=== PATIENT | female | born 1940 | race Caucasian/White ===

== ENCOUNTER 2019-05-01 21:32 | Inpatient (IN) ==
[2019-05-01] MEDS ORDERED: methylPREDNISolone 125 MG/2 ML VIAL IVP ONE (21:47)
[2019-05-01] MEDS ORDERED: Ipratropium/Albuterol Neb 3 ML IH ONE (21:48)
[2019-05-01 21:51] LABS: ABG Base Excess -1 mEq/L (-2 to 3); ABG HCO3 28 mEq/L (21-27); ABG Oxygen Saturation 99 % (95-98); ABG PCO2 68 mmHg (35-45); ABG PH 7.23 pH Units (7.32-7.45); ABG PO2 172 mmHg (85-104); ABG TCO2 30 mEq/L (20-26)
[2019-05-01 21:59] LABS: Basophils # 0.1 K/mcL (0.0-0.2); Basophils % 0.6 %; Eosinophils % 0.2 %; Hematocrit 31.5 % (35.3-44.9); Hemoglobin 9.6 g/dL (11.5-15.4); Lymphocytes # 1.5 K/mcL (0.6-4.6); Lymphocytes % 7.5 %; Mean Corpuscular HGB Conc 30.5 g/dL (31.6-35.5); Mean Corpuscular Hemoglobin 29.4 pg (28.0-33.3); Mean Corpuscular Volume 96.3 fL (83.0-100.0); Mean Platelet Volume 10.6 fL (9.4-12.4); Monocytes # 2.5 K/mcL (0.0-1.3); Monocytes % 12.4 %; Neutrophils # 14.9 K/mcL (1.6-8.9); Platelet Count 241 K/mcL (140-400); Red Blood Count 3.27 M/mcL (3.82-4.97); Red Cell Distribution Width 13.3 % (11.5-14.5); Segmented Neutrophils % 75.3 %; White Blood Count 19.8 K/mcL (4.3-11.1)
[2019-05-01] MEDS ORDERED: Levofloxacin 750 MG/150 ML 750 MG/150 ML BAG IVPB ONE (22:06)
--- NOTE | 2019-05-01 22:14 | Emergency Department Note ---
Disposition Clinical Impression: Acute exacerbation of chronic obstructive airways disease, Acute respiratory failure with hypoxia and hypercapnia, Pneumonia Disposition: Admitted As Inpatient Condition: Serious Referrals: Cirilo Dacosta MD [Primary Care Provider] - Forms: ED Satisfaction Letter Time of Disposition: 00:43 General Adult HPI - General Chief complaint: ED Shortness of Breath/Dyspnea Stated complaint: JE Time Seen by Provider: 05/01/19 21:46 Source: patient, EMS Limitations: no limitations Nursing Notes Reviewed: Yes Vital Signs Reviewed: Yes - History of Present Illness HPI Narrative: Patient presents via EMS for hypoxia and respiratory distress and altered mental status, patient was unable to write significant history upon arrival in relation to recent episodes and what has been going on she does endorse currently feeling short of breath, she does not know exactly how she got here, she thought she was at [facility], she is able to tell me her name and that she does feel short of breath she is denying any current pain she denies headache neck pain chest pain she states that she feels cold but has not had any fever she denies abdominal pain she denies leg pain or leg swelling. Family arrives and states that the patient intermittently for the last few days has seemed more confused and out of it sometimes this happens when she has respiratory problems they have been monitoring her oxygen which he stated that it seems to have been okay she does have an appointment see her doctor on Thursday and the patient was trying to wait they report that today she had increased respiratory difficulty, she was coughing and coughed up some blood-streaked sputum she had a temperature of 95, and she then became more confused and more out of it so they called the paramedics. They report that this seems mostly like when she has had problems with her breathing in the past and that the patient over the last couple days just told them that it was her lungs she has not complained of chest pain apart from sometimes with cough, she has never coughed up blood in the past according to the family. She does have a history of congestive heart failure and heart problems as well as COPD, but the patient had told them that she thought this felt like her COPD she has had no recent travels or immobilization leg pain or leg swelling, she has felt cold but has not had a fever but again have a low temperature documented yesterday of 95. She has had no acute trauma. She has had no changes in appetite, no vomiting or diarrhea no complaints of any neck pain or headache no unilateral symptoms that they have noticed. She with her altered mental status today did seem to be leaning towards the right but there report that she just seemed very weak and that was the direction she was falling they did notthat she was not using one side of her body. The patient is denying any unilateral numbness or weakness. Paramedics report that patient's oxygenation saturation was 64% on oxygen upon arrival, improved en route nonrebreather, blood sugar was 137 Pain Scale: 0 - Related Data Home Medications Medication Instructions Recorded Confirmed ALPRAZolam [Xanax 1 MG Tablet] 1 mg PO BID 05/01/19 05/01/19 Albuterol Sulfate [Ventolin Hfa] 2 puff IH Q4H PRN 05/01/19 05/01/19 Atorvastatin Calcium 80 mg PO DAILY 05/01/19 05/01/19 Cholecalciferol (D-3) [Vitamin D] 2,000 unit PO DAILY 05/01/19 05/01/19 Duloxetine HCl [Cymbalta] 60 mg PO BID 05/01/19 05/01/19 Fluticasone Furoate [Arnuity 1 puff IH DAILY 05/01/19 05/01/19 Ellipta] Ibuprofen [Ibu] 800 mg PO TID PRN 05/01/19 05/01/19 Lactulose 30 ml PO BID PRN 05/01/19 05/01/19 Metoprolol [Lopressor] 25 mg PO BID 05/01/19 05/01/19 Montelukast [Singulair] 10 mg PO DAILY 05/01/19 05/01/19 Multivitamin [Daily Multiple 1 each PO DAILY 05/01/19 05/01/19 Vitamin] Nitroglycerin [Nitrostat] 0.4 mg SL Q5MIN PRN 05/01/19 05/01/19 Omeprazole [PriLOSEC] 20 mg PO DAILY 05/01/19 05/01/19 Spironolactone [Aldactone] 25 mg PO DAILY 05/01/19 05/01/19 Tiotropium Br/Olodaterol HCl 2 puff IH DAILY 05/01/19 05/01/19 [Stiolto Respimat Inhal [place]] Allergies Allergy/AdvReac Type Severity Reaction Status Date / Time acetaminophen [From Vicodin] AdvReac Vomiting Verified 05/01/19 22:21 Amoxicillin [From Augmentin] AdvReac Abdominal Verified 05/01/19 22:21 Pain ciprofloxacin AdvReac Vomiting Verified 05/01/19 22:21 clavulanic acid AdvReac Abdominal Verified 05/01/19 22:21 [From Augmentin] Pain hydrocodone [From Vicodin] AdvReac Vomiting Verified 05/01/19 22:21 All systems ED: reviewed and negative except as stated. Review of Systems: As Per HPI Past Medical History - Past Medical History Medical history: Reports: CHF, COPD Psychiatric history: Reports: anxiety - Social History Smoking Status: Former smoker Smokeless Tobacco Status: No Alcohol use: Reports: none Drug use: Reports: none Physical Exam - General Limitations: no limitations General appearance: alert, anxious, lethargic, in distress, other (Noted tachypnea, patient does appear to be leaning to the right but she can move all 4 extremities, she states that she just feels weak and tired which is why she is falling to the side. She is in mild to moderate respiratory distress, with noted tachypnea, some accessory muscle use without retraction) - Head Head exam: atraumatic, normocephalic - Eye Eye exam: Present: normal appearance, PERRL - ENT ENT exam: normal exam, normal oropharynx - Neck Neck exam: Present: normal inspection. Absent: meningismus, lymphadenopathy - Chest Chest inspection: Present: normal inspection, symmetric chest wall rise - Respiratory Respiratory exam: Present: respiratory distress, wheezes, accessory muscle use, prolonged expiratory phase, other (No focal rales rhonchi or crackles, diminished breath sounds bilaterally). Absent: normal lung sounds bilaterally - Cardiovascular Cardiovascular exam: Present: normal rhythm, tachycardia. Absent: systolic murmur, diastolic murmur, rubs, gallop, JVD - Abdominal Exam Abdominal exam: Present: soft, Non-Tender - Rectal Exam Rectal exam: Present: deferred - Extremities Exam Extremities exam: Present: normal inspection, full ROM, normal capillary refill. Absent: tenderness - Expanded Lower Extremity Exam Neurovascular/Tendon exam: Present: normal capillary refill. Absent: pulse deficit - Back Exam Back exam: Present: normal inspection. Absent: tenderness, CVA tenderness (R), CVA tenderness (L) - Neurological Exam Neurological exam: Present: alert, CN II-XII intact, other (Oriented 1). Absent: motor sensory deficit - Psychiatric Psychiatric exam: Present: normal affect, normal mood - Skin Skin exam: Present: warm (However cool distally), dry, intact. Absent: mottled Course Vital Signs Temperature 99.9 F H 05/01/19 21:35 Pulse Rate 120 05/01/19 21:35 Respiratory Rate 35 05/01/19 21:35 Blood Pressure 126/64 05/01/19 21:35 O2 Sat by Pulse Oximetry 98 05/01/19 21:35 Temperature 99.9 F H 05/01/19 21:35 Pulse Rate 84 05/02/19 00:18 Respiratory Rate 16 05/02/19 00:18 Blood Pressure 91/61 05/02/19 00:18 O2 Sat by Pulse Oximetry 100 05/02/19 00:18 Oxygen Delivery Oxygen Delivery Bipap Medical Decision Making - MDM Narrative Medical decision making narrative: Patient had IVs established, she was given IV Solu-Medrol she was given breathing treatment she was initially started on BiPAP for evidence for acute COPD exacerbation. She was given IV fluids, she was started on IV antibiotics. She did have a low-grade fever as well. Patient chest x-ray showed no acute findings. CBC demonstrated leukocytosis of 19,800 no other acute abnormality. Cardiac enzymes are negative. BNP was 201. Renal panel was unremarkable. ABG was obtained as the patient was being initiated on BiPAP, chemistry pH of 7.23 PCO2 of 68 option saturation of 170 she had come in on nonrebreather, we decreased oxygen on the BiPAP based upon this. On multiple subsequent examinations of the patient, she continues to significantly improve with the above management, she is way more alert awake talking able to answer all my questions states she is feeling much improved from a respiratory standpoint she had improved aeration, and is much more alert, stating that she is doing better. Secondary to her reported hemoptysis, with a chest x-ray that showed no obvious abnormality, a CT PE protocol was ordered which demonstrated multiple tree and blood opacities, no other evidence of acute process, no pulmonary embolism. Secondary to altered mental status and her presenting with leaning to the right, head CT was ordered which showed no acute findings. She now that she is breathing better and is mentating better is now sitting upright, with no evidence of any focal neurologic findings, she will be admitted to the hospital for further evaluation and management. Total critical care time as provided by myself excluding any procedures performed was 45 minutes. - Medical Records Medical records reviewed: Yes I reviewed the patient's medical records. - Lab Data Lab results reviewed: Yes I reviewed the patient's lab results. Result diagrams: 05/01/19 21:41 05/01/19 21:41 Lab Results 05/01/19 05/01/19 05/01/19 Range/Units 21:41 21:41 21:41 WBC 19.8 H (4.3-11.1) K/mcL RBC 3.27 L (3.82-4.97) M/mcL Hgb 9.6 L (11.5-15.4) g/dL Hct 31.5 L (35.3-44.9) % MCV 96.3 (83.0-100.0) fL MCH 29.4 (28.0-33.3) pg MCHC 30.5 L (31.6-35.5) g/dL RDW 13.3 (11.5-14.5) % Plt Count 241 (140-400) K/mcL MPV 10.6 (9.4-12.4) fL Immature Gran % 4.0 (0-4) % Seg Neutrophils % 75.3 % Lymphocytes % 7.5 % Monocytes % 12.4 % Eosinophils % 0.2 % Basophils % 0.6 % Neutrophils # 14.9 H (1.6-8.9) K/mcL Lymphocytes # 1.5 (0.6-4.6) K/mcL Monocytes # 2.5 H (0.0-1.3) K/mcL Eosinophils # 0.0 (0.0-0.6) K/mcL Basophils # 0.1 (0.0-0.2) K/mcL APTT 33.5 (26.0-36.0) Seconds Sample Site ABG pH (7.32-7.45) pH Units ABG pCO2 (35-45) mmHg ABG pO2 (85-104) mmHg ABG HCO3 (21-27) mEq/L ABG Total CO2 (20-26) mEq/L ABG O2 Saturation (95-98) % ABG Base Excess (-2 to 3) mEq/L Oleg Test O2 Delivery Device Inspired O2 (1-15=lpm [id number]=%) Sodium 142 (136-145) mEq/L Potassium 4.2 (3.5-5.1) mEq/L Chloride 104 (98-107) mEq/L Carbon Dioxide 26 (23-29) mEq/L BUN 19 (8-23) mg/dL Creatinine 1.22 H (0.60-1.20) mg/dL Est GFR ( Amer) 51 L (> 60) Est GFR (Non-Af Amer) 42 L (> 60) BUN/Creatinine Ratio 16 (6-26) Glucose 167 H (70-105) mg/dL Calculated Osmolality 300 (280-300) Lactic Acid (0.5-2.2) mmol/L Calcium 10.2 (8.6-10.3) mg/dL Magnesium 2.0 (1.6-2.6) mg/dL Troponin I < 0.03 (< 0.04) ng/mL B-Natriuretic Peptide (Less than 100) pg/mL Urine Color (Yellow) Urine Clarity (Clear) Urine pH (5.0-8.0) pH Units Ur Specific [place] (1.010-1.025) Urine Protein (Neg-Trace) mg/dL Urine Glucose (UA) (Normal) mg/dL Urine Ketones (Negative) mg/dL Urine Blood (Negative) Urine Nitrite (Negative) Urine Bilirubin (Negative) Urine Urobilinogen (Normal) mg/dL Ur Leukocyte Esterase (Negative) Urine Microscopic RBC (0-3) per hpf Urine Microscopic WBC (0-3) per hpf Ur Squamous Epith Cells (None-Few) per lpf Urine Bacteria (None-Few) per hpf Hyaline Casts (None-Few) per lpf Ur Culture Indicated? (NO) 05/01/19 05/01/19 05/01/19 Range/Units 21:41 21:47 22:14 WBC (4.3-11.1) K/mcL RBC (3.82-4.97) M/mcL Hgb (11.5-15.4) g/dL Hct (35.3-44.9) % MCV (83.0-100.0) fL MCH (28.0-33.3) pg MCHC (31.6-35.5) g/dL RDW (11.5-14.5) % Plt Count (140-400) K/mcL MPV (9.4-12.4) fL Immature Gran % (0-4) % Seg Neutrophils % % Lymphocytes % % Monocytes % % Eosinophils % % Basophils % % Neutrophils # (1.6-8.9) K/mcL Lymphocytes # (0.6-4.6) K/mcL Monocytes # (0.0-1.3) K/mcL Eosinophils # (0.0-0.6) K/mcL Basophils # (0.0-0.2) K/mcL APTT (26.0-36.0) Seconds Sample Site R Radial ABG pH 7.23 L (7.32-7.45) pH Units ABG pCO2 68 H (35-45) mmHg ABG pO2 172 H (85-104) mmHg ABG HCO3 28 H (21-27) mEq/L ABG Total CO2 30 H (20-26) mEq/L ABG O2 Saturation 99 H (95-98) % ABG Base Excess -1 (-2 to 3) mEq/L Oleg Test Negative O2 Delivery Device NRB Inspired O2 100.0 (1-15=lpm [id number]=%) Sodium (136-145) mEq/L Potassium (3.5-5.1) mEq/L Chloride (98-107) mEq/L Carbon Dioxide (23-29) mEq/L BUN (8-23) mg/dL Creatinine (0.60-1.20) mg/dL Est GFR ( Amer) (> 60) Est GFR (Non-Af Amer) (> 60) BUN/Creatinine Ratio (6-26) Glucose (70-105) mg/dL Calculated Osmolality (280-300) Lactic Acid 1.4 (0.5-2.2) mmol/L Calcium (8.6-10.3) mg/dL Magnesium (1.6-2.6) mg/dL Troponin I (< 0.04) ng/mL B-Natriuretic Peptide 201 H (Less than 100) pg/mL Urine Color (Yellow) Urine Clarity (Clear) Urine pH (5.0-8.0) pH Units Ur Specific [place] (1.010-1.025) Urine Protein (Neg-Trace) mg/dL Urine Glucose (UA) (Normal) mg/dL Urine Ketones (Negative) mg/dL Urine Blood (Negative) Urine Nitrite (Negative) Urine Bilirubin (Negative) Urine Urobilinogen (Normal) mg/dL Ur Leukocyte Esterase (Negative) Urine Microscopic RBC (0-3) per hpf Urine Microscopic WBC (0-3) per hpf Ur Squamous Epith Cells (None-Few) per lpf Urine Bacteria (None-Few) per hpf Hyaline Casts (None-Few) per lpf Ur Culture Indicated? (NO) 05/01/19 Range/Units 22:30 WBC (4.3-11.1) K/mcL RBC (3.82-4.97) M/mcL Hgb (11.5-15.4) g/dL Hct (35.3-44.9) % MCV (83.0-100.0) fL MCH (28.0-33.3) pg MCHC (31.6-35.5) g/dL RDW (11.5-14.5) % Plt Count (140-400) K/mcL MPV (9.4-12.4) fL Immature Gran % (0-4) % Seg Neutrophils % % Lymphocytes % % Monocytes % % Eosinophils % % Basophils % % Neutrophils # (1.6-8.9) K/mcL Lymphocytes # (0.6-4.6) K/mcL Monocytes # (0.0-1.3) K/mcL Eosinophils # (0.0-0.6) K/mcL Basophils # (0.0-0.2) K/mcL APTT (26.0-36.0) Seconds Sample Site ABG pH (7.32-7.45) pH Units ABG pCO2 (35-45) mmHg ABG pO2 (85-104) mmHg ABG HCO3 (21-27) mEq/L ABG Total CO2 (20-26) mEq/L ABG O2 Saturation (95-98) % ABG Base Excess (-2 to 3) mEq/L Oleg Test O2 Delivery Device Inspired O2 (1-15=lpm [id number]=%) Sodium (136-145) mEq/L Potassium (3.5-5.1) mEq/L Chloride (98-107) mEq/L Carbon Dioxide (23-29) mEq/L BUN (8-23) mg/dL Creatinine (0.60-1.20) mg/dL Est GFR ( Amer) (> 60) Est GFR (Non-Af Amer) (> 60) BUN/Creatinine Ratio (6-26) Glucose (70-105) mg/dL Calculated Osmolality (280-300) Lactic Acid (0.5-2.2) mmol/L Calcium (8.6-10.3) mg/dL Magnesium (1.6-2.6) mg/dL Troponin I (< 0.04) ng/mL B-Natriuretic Peptide (Less than 100) pg/mL Urine Color Dark Yellow (Yellow) Urine Clarity Cloudy A (Clear) Urine pH 5.0 (5.0-8.0) pH Units Ur Specific [place] 1.024 (1.010-1.025) Urine Protein 100 H (Neg-Trace) mg/dL Urine Glucose (UA) Normal (Normal) mg/dL Urine Ketones Negative (Negative) mg/dL Urine Blood Negative (Negative) Urine Nitrite Negative (Negative) Urine Bilirubin Small H (Negative) Urine Urobilinogen Normal (Normal) mg/dL Ur Leukocyte Esterase Negative (Negative) Urine Microscopic RBC 3-5 H (0-3) per hpf Urine Microscopic WBC 0-3 (0-3) per hpf Ur Squamous Epith Cells Many H (None-Few) per lpf Urine Bacteria None Seen (None-Few) per hpf Hyaline Casts Many H (None-Few) per lpf Ur Culture Indicated? NO (NO) - Radiology Data Radiology results reviewed: Yes I reviewed the patient's radiology results.
[2019-05-01] MEDS ORDERED: 0.9 % Sodium Chloride 1,000 ML IVC ONE (22:15)
[2019-05-01] MEDS ORDERED: cefTRIAXone 1,000 MG in Water for inj. (sterile) 20 ML 10 ML IVP ONE (22:19)
[2019-05-01] MEDS ORDERED: Azithromycin 500 MG in D5% in Water 250 ML IVPB ONE (22:19)
[2019-05-01 22:24] LABS: BUN/Creatinine Ratio 16 (6-26); Blood Urea Nitrogen 19 mg/dL (8-23); Calcium 10.2 mg/dL (8.6-10.3); Carbon Dioxide 26 mEq/L (23-29); Chloride 104 mEq/L (98-107); Glucose 167 mg/dL (70-105); Osmolality,Calculated 300 (280-300); Potassium 4.2 mEq/L (3.5-5.1); Sodium 142 mEq/L (136-145); Troponin I < 0.03 ng/mL (< 0.04); eGFR For African Americans 51 (> 60); eGFR For Non-African Americans 42 (> 60)
[2019-05-01] MEDS ORDERED: Isovue-370 500 ML BOTTLE IVP ONE (22:33)
[2019-05-01 22:55] LABS: Bilirubin,Urine Small (Negative); Blood,Urine Negative (Negative); Clarity,Urine Cloudy (Clear); Color,Urine Dark Yellow (Yellow); Glucose,Urine (UA) Normal (Normal); Ketones,Urine Negative (Negative); Leukocyte Esterase,Urine Negative (Negative); Nitrite,Urine Negative (Negative); Protein,Urine 100 mg/dL (Neg-Trace); Specific Gravity,Urine 1.024 (1.010-1.025); Urobilinogen,Urine Normal (Normal)
[2019-05-01 22:57] LABS: Bacteria,Urine None Seen per hpf (None-Few); Squamous Epithelial Cell,Urine Many per lpf (None-Few); WBC,Urine 0-3 per hpf (0-3)
[2019-05-01 23:03] LABS: Hyaline Casts,Urine Many per lpf (None-Few)
[2019-05-02] MEDS ORDERED: 0.9 % Sodium Chloride 1,000 ML IVC ONE ×2 (00:16→05:07)
[2019-05-02] MEDS ORDERED: Aminoglycoside Consult 1 EACH MC ONE (00:55)
--- NOTE | 2019-05-02 02:53 | Internal Med History&Physical ---
<Sesar Murphy - Last Filed: 05/02/19 05:15> Date of Encounter: 05/02/19 Time of Encounter: 03:14 Internal Medicine - H&P: HPI Chief complaint: Shortness of breath History of present illness: Ms. Ponce is an 79-year-old female with a PMH of CHF and COPD who presented to [facility] ED on 05/02/19 for respiratory distress and altered mental status. She was noted to be somewhat altered when she arrived. Per history obtained from family, patient reportedly was more confused and short of breath over the last few days. They report that today, she was coughing up blood-streaked sputum and developed increased confusion. Paramedics reported that patients O2 saturation was 64% on arrival, which subsequently improved with application of nonrebreather. Upon arrival, vital signs were significant for elevated temperature at 99.9, heart rate 120, respiratory rate 35, blood pressure 126/64, and O2 saturation 98% on 15 L via nonrebreather. Labs demonstrated elevated white count at 19.8, low hemoglobin at 9.6, elevated creatinine at 1.22, and elevated BNP at 201. CXR demonstrated no acute process. CT of the head demonstrated no acute intracranial abnormality. CTA of the chest showed no evidence of pulmonary embolism, mild mediastinal and hilar adenopathy, calcified mediastinal lymph nodes, scattered tree-in-bud infiltrates throughout the lungs with bronchial wall thickening suggestive of UIP. She was given a one-time dose of azithromycin, ceftriaxone, Levaquin, and Solu-Medrol. She was also given 2 L of normal saline. She was placed on BiPAP for respiratory support. Blood cultures were obtained 2. After these treatments, patient became more alert and awake, and was able to answer questions. During interview, patient states that she is feeling better. She is currently on BiPAP, and is able to answer questions. She is alert and oriented. Denies having chest pain, chest tightness, cough, or sputum production since she has been in the hospital. On physical exam, patient has diminished breath sounds bilaterally, but has no wheezes, rales, or rhonchi. No focal deficits or lower extremity edema is present. Past Med Surg Social Fam HX - Past Medical History Medical history: CHF, COPD Psychiatric history: anxiety - Past Surgical History Additional surgical history: tubal - Social History Smoking Status: Former smoker Smokeless Tobacco Status: No Alcohol use: none Drug use: none Internal Medicine - H&P: Meds ALPRAZolam [Xanax 1 MG Tablet] 1 mg PO BID 05/01/19 [History] Albuterol Sulfate [Ventolin Hfa] 2 puff IH Q4H PRN 05/01/19 [History] Atorvastatin Calcium 80 mg PO DAILY 05/01/19 [History] Cholecalciferol (D-3) [Vitamin D] 2,000 unit PO DAILY 05/01/19 [History] Duloxetine HCl [Cymbalta] 60 mg PO BID 05/01/19 [History] Fluticasone Furoate [Arnuity Ellipta] 1 puff IH DAILY 05/01/19 [History] Ibuprofen [Ibu] 800 mg PO TID PRN 05/01/19 [History] Lactulose 30 ml PO BID PRN 05/01/19 [History] Metoprolol [Lopressor] 25 mg PO BID 05/01/19 [History] Montelukast [Singulair] 10 mg PO DAILY 05/01/19 [History] Multivitamin [Daily Multiple Vitamin] 1 each PO DAILY 05/01/19 [History] Nitroglycerin [Nitrostat] 0.4 mg SL Q5MIN PRN 05/01/19 [History] Omeprazole [PriLOSEC] 20 mg PO DAILY 05/01/19 [History] Spironolactone [Aldactone] 25 mg PO DAILY 05/01/19 [History] Tiotropium Br/Olodaterol HCl [Stiolto Respimat Inhal [place]] 2 puff IH DAILY 05/01/19 [History] Allergy/AdvReac Type Severity Reaction Status Date / Time acetaminophen [From Vicodin] AdvReac Vomiting Verified 05/01/19 22:21 Amoxicillin [From Augmentin] AdvReac Abdominal Verified 05/01/19 22:21 Pain ciprofloxacin AdvReac Vomiting Verified 05/01/19 22:21 clavulanic acid AdvReac Abdominal Verified 05/01/19 22:21 [From Augmentin] Pain hydrocodone [From Vicodin] AdvReac Vomiting Verified 05/01/19 22:21 All Systems PM: A 10-system review of systems was performed and is negative for pertinent findings except as documented above in the HPI. - Constitutional Vitals: Temp Pulse Resp BP Pulse Ox 99.9 F H 84 16 91/61 100 05/01/19 21:35 05/02/19 00:18 05/02/19 00:18 05/02/19 00:18 05/02/19 00:18 Exam: General: A&O X3, conversant, on BiPAP, pale-appearing Head: atraumatic, normocephalic Eye: PERRL, EOMI, conjuntiva pink, sclera anicteric Neck: Supple, trachea midline; No lymphadenopathy Respiratory: Diminished breath sounds bilaterally. No accessory muscle use, wheezes, rales, or rhonchi Cardiovascular: RRR, +S1, +S2; no murmurs, rubs, gallops Abdomen: Soft, nontender Extremities: warm, radial pulses palpable and symmetrical; no clubbing, edema, or cyanosis Psychiatric: Normal affect, normal mood Skin: Dry, intact Internal Med - H&P Results - Labs CBC & Chem 7: 05/02/19 04:15 05/02/19 04:15 Labs: Short CBC 05/01/19 Range/Units 21:41 WBC 19.8 H (4.3-11.1) K/mcL Hgb 9.6 L (11.5-15.4) g/dL Hct 31.5 L (35.3-44.9) % Plt Count 241 (140-400) K/mcL Neutrophils # 14.9 H (1.6-8.9) K/mcL BMP 05/01/19 21:41 Sodium 142 Potassium 4.2 Chloride 104 Carbon Dioxide 26 BUN 19 Creatinine 1.22 H Glucose 167 H Calcium 10.2 Cardiac Enzymes 05/01/19 Range/Units 21:41 Troponin I < 0.03 (< 0.04) ng/mL Urine 05/01/19 Range/Units 22:30 Urine Color Dark Yellow (Yellow) Urine Clarity Cloudy A (Clear) Urine pH 5.0 (5.0-8.0) pH Units Ur Specific Fidelity 1.024 (1.010-1.025) Urine Protein 100 H (Neg-Trace) mg/dL Urine Glucose (UA) Normal (Normal) mg/dL - ABG Interpretation ABG results: 05/01/19 21:47 ABG pH 7.23 L ABG pCO2 68 H ABG pO2 172 H ABG HCO3 28 H ABG Total CO2 30 H ABG O2 Saturation 99 H ABG Base Excess -1 - Impressions ITS Impressions Chest X-Ray 05/01/19 21:47 IMPRESSION: No evidence of acute cardiopulmonary disease. D/ / Mohit West MD / Mohit West MD Interpreting Provider: Mohit West MD Head CT 05/01/19 21:47 IMPRESSION: No acute intracranial abnormality. D/ / Prosper Squires MD / Prosper Squires MD Interpreting Provider: Prosper Squires MD Chest CTA 05/01/19 22:33 IMPRESSION: 1. No evidence of pulmonary embolus. 2. Mild mediastinal and hilar adenopathy. Calcified mediastinal lymph nodes. 3. Scattered tree in bud infiltrates throughout the lungs. This may be on an inflammatory, infectious less likely autoimmune basis. There is also bronchial wall thickening. Findings suggest UIP. D/ / Renee Vale MD / Renee Vale MD Interpreting Provider: Renee Vale MD - Assessment and Plan (1) Sepsis Current Visit: Yes Status: Acute Assessment and plan: - Met 3 out of 4 SIRS criteria with heart rate 120, RR 35, WBC 19.8 with left shift - Elevated temperature on arrival at 99.9; lactic acid was within normal limits - Causative organism unknown at this time - CTA of chest showed scattered tree-in-bud infiltrates throughout lungs with b ronchial wall thickening - Was given a one-time dose of azithromycin, ceftriaxone, Levaquin, and Solu- Medrol in the emergency department - Was also given 2 L of normal saline - Blood cultures 2 were ordered and are currently pending Plan: - Continue IV Rocephin and Zithromax; tailor antibiotic therapy according to culture results - We will obtain sputum culture and Strep/Legionella urine antigen - Will order pro-calcitonin - Repeat a.m. labs Qualifiers: Qualified Code(s): A41.9 - Sepsis, unspecified organism (2) Acute respiratory failure with hypoxia and hypercapnia Current Visit: Yes Status: Acute Assessment and plan: - Presented with acute hypoxic respiratory failure - Likely secondary to COPD exacerbation - Per EMS, patient was satting at 64% on arrival, which improved with application of nonrebreather - Patient received Rocephin, Zithromax, Levaquin in the ED, as well as a one- time dose of Solu-Medrol - Patient was subsequently given BiPAP, which improved her oxygenation and mental status - AB.23/68/172//30/99 Plan: - Solu-Medrol 40 mg IV every 12 hours - Continue IV Zithromax and Rocephin - Continue supplemental O2 and BiPAP as needed - PRN Duonebs, Resume home symbicort and fluticasone - Repeat ABG tomorrow (3) Acute kidney failure Current Visit: Yes Status: Acute Assessment and plan: - Presented with elevated creatinine at 1.22 - Etiology is unknown at this time - Received 2 L of normal saline in the emergency department - If repeat creatinine does not improve, initiate full SANDHYA workup with urine studies Qualifiers: Qualified Code(s): N17.9 - Acute kidney failure, unspecified (4) CHF (congestive heart failure) Current Visit: Yes Status: Acute Assessment and plan: - Elevated BNP on arrival at 201 - No prior echocardiogram is on file Plan: - Obtain echocardiogram Qualifiers: Qualified Code(s): I50.9 - Heart failure, unspecified (5) Altered mental state Current Visit: Yes Status: Acute Assessment and plan: - Initially presented with altered mental status; was only oriented to person - Likely secondary to acute respiratory failure with hypercapnia - Mental status subsequently improved with the use of BiPAP; patient is now alert and oriented 3 Qualifiers: Qualified Code(s): R41.82 - Altered mental status, unspecified (6) DVT (deep venous thrombosis) Current Visit: Yes Status: Acute Assessment and plan: - Heparin 5000 SQ Qualifiers: Qualified Code(s): I82.409 - Acute embolism and thrombosis of unspecified deep veins of unspecified lower extremity - Time Spent With Patient Total time spent is greater than 50% in coordination of care (as documented) at patient's floor/unit and/or counseling patient: <Prosper Galo - Last Filed: 05/02/19 07:33> Date of Encounter: 05/02/19 Internal Medicine - H&P: HPI History of present illness: Ms. Ponce is a 79 year old female All Systems PM: A 10-system review of systems was performed and is negative for pertinent findings except as documented above in the HPI. - Constitutional Vitals: Temp Pulse Resp BP Pulse Ox 97.6 F 74 13 80/70 99 05/02/19 07:21 05/02/19 07:21 05/02/19 07:21 05/02/19 07:21 05/02/19 07:21 Internal Med - H&P Results - Labs CBC & Chem 7: 05/02/19 04:15 05/02/19 04:15 Labs: Short CBC 05/01/19 05/02/19 Range/Units 21:41 04:15 WBC 19.8 H 13.1 H (4.3-11.1) K/mcL Hgb 9.6 L 10.3 L (11.5-15.4) g/dL Hct 31.5 L 33.4 L (35.3-44.9) % Plt Count 241 212 (140-400) K/mcL Neutrophils # 14.9 H 11.1 H (1.6-8.9) K/mcL BMP 05/01/19 05/02/19 21:41 04:15 Sodium 142 143 Potassium 4.2 4.3 Chloride 104 108 H Carbon Dioxide 26 27 BUN 19 17 Creatinine 1.22 H 1.00 Glucose 167 H 184 H Calcium 10.2 8.5 L Cardiac Enzymes 05/01/19 Range/Units 21:41 Troponin I < 0.03 (< 0.04) ng/mL Urine 05/01/19 Range/Units 22:30 Urine Color Dark Yellow (Yellow) Urine Clarity Cloudy A (Clear) Urine pH 5.0 (5.0-8.0) pH Units Ur Specific [place] 1.024 (1.010-1.025) Urine Protein 100 H (Neg-Trace) mg/dL Urine Glucose (UA) Normal (Normal) mg/dL - ABG Interpretation ABG results: 05/01/19 21:47 ABG pH 7.23 L ABG pCO2 68 H ABG pO2 172 H ABG HCO3 28 H ABG Total CO2 30 H ABG O2 Saturation 99 H ABG Base Excess -1 - Impressions ITS Impressions Chest X-Ray 05/01/19 21:47 IMPRESSION: No evidence of acute cardiopulmonary disease. D/ / Mohit West MD / Mohit West MD Interpreting Provider: Mohit West MD Head CT 05/01/19 21:47 IMPRESSION: No acute intracranial abnormality. D/ / Prosper Squires MD / Prosper Squires MD Interpreting Provider: Prosper Squires MD Chest CTA 05/01/19 22:33 IMPRESSION: 1. No evidence of pulmonary embolus. 2. Mild mediastinal and hilar adenopathy. Calcified mediastinal lymph nodes. 3. Scattered tree in bud infiltrates throughout the lungs. This may be on an inflammatory, infectious less likely autoimmune basis. There is also bronchial wall thickening. Findings suggest UIP. D/ / Renee Vale MD / Renee Vale MD Interpreting Provider: Renee Vale MD Chest X-Ray 05/02/19 06:38 IMPRESSION: 1. Interval placement of right CVC with tip in the distal superior vena cava. No acute complication. 2. No acute pulmonary abnormality. D/ / Heron Chacon MD / Heron Chacon MD Interpreting Provider: Heron Chacon MD - Time Spent With Patient Total time spent is greater than 50% in coordination of care (as documented) at patient's floor/unit and/or counseling patient: - Attending Attestation I saw and evaluated the patient. I reviewed the residents note, performed my own physical examination and agree with findings and plan as documented in the residents note. Patient seen and examined on 05/02/19. Patient more awake now, answers questions. I assessed the patient in the ER initially, vital signs were stable. Upon arrival to the floor however, patient's blood pressures remained low despite fluid resuscitation. Decision was made to place a central line in the patient, and transfer her to the ICU. Please see separate procedure note for more details. Continue to treat pneumonia, and continue BiPAP. Daughter at bedside and helps to answer questions. She agrees patient is DNR/DNI. Consented to the central line prior to placement. Will continue close monitoring in the ICU.
[2019-05-02] MEDS ORDERED: Naloxone 0.4 MG/ML INJ IVP PRN ×2 (03:08→17:32)
[2019-05-02] MEDS ORDERED: 0.9 % Sodium Chloride 1,000 ML ONE ×2 (03:36→05:08)
[2019-05-02] MEDS ORDERED: Ipratropium/Albuterol Neb 3 ML IH PRN (04:32)
[2019-05-02 04:37] LABS: Basophils # 0.1 K/mcL (0.0-0.2); Basophils % 0.5 %; Hematocrit 33.4 % (35.3-44.9); Hemoglobin 10.3 g/dL (11.5-15.4); Immature Granulocytes % 2.5 % (0-4); Lymphocytes # 0.9 K/mcL (0.6-4.6); Mean Corpuscular HGB Conc 30.8 g/dL (31.6-35.5); Mean Corpuscular Volume 94.1 fL (83.0-100.0); Mean Platelet Volume 10.5 fL (9.4-12.4); Monocytes # 0.7 K/mcL (0.0-1.3); Monocytes % 5.5 %; Neutrophils # 11.1 K/mcL (1.6-8.9); Platelet Count 212 K/mcL (140-400); Red Blood Count 3.55 M/mcL (3.82-4.97); Red Cell Distribution Width 13.3 % (11.5-14.5); Segmented Neutrophils % 84.5 %; White Blood Count 13.1 K/mcL (4.3-11.1)
[2019-05-02 04:55] LABS: BUN/Creatinine Ratio 17 (6-26); Blood Urea Nitrogen 17 mg/dL (8-23); Calcium 8.5 mg/dL (8.6-10.3); Carbon Dioxide 27 mEq/L (23-29); Chloride 108 mEq/L (98-107); Glucose 184 mg/dL (70-105); Osmolality,Calculated 302 (280-300); Potassium 4.3 mEq/L (3.5-5.1); Sodium 143 mEq/L (136-145); eGFR For African Americans > 60 (> 60); eGFR For Non-African Americans 53 (> 60)
[2019-05-02 05:01] LABS: Platelet Estimate Normal (Normal)
[2019-05-02] MEDS ORDERED: Nitroglycerin 0.4 MG TAB.SUBL SL PRN ×2 (05:08→17:32)
[2019-05-02] MEDS ORDERED: Norepinephrine 4 MG in D5% in Water 250 ML IVC SCH ×2 (06:45→17:32)
--- NOTE | 2019-05-02 07:27 | Procedure Note ---
Date of procedure: 05/02/19 Pre-op diagnosis: hypotension Post-op diagnosis: same Procedure: Central Venous Catheter (CVC, Central Line) Placement Date: 05/02/19 Time: 06:30 Indication: Hemodynamic monitoring/Intravenous access Resident: Sesar Murphy Attending: Lakshmi Arnold The patient was placed in a dependent position appropriate for central line placement based on the vein to be cannulated. The patients right neck was prepped and draped in sterile fashion. 1% Lidocaine was used to anesthetize the surrounding skin area. A triple lumen catheter was introduced into the the internal jugular using the Seldinger technique and under ultrasound guidance. The catheter was threaded smoothly over the guide wire and appropriate blood return was obtained. Each lumen of the catheter was evacuated of air and flushed with sterile saline. The catheter was then sutured in place to the skin and a sterile dressing applied. Perfusion to the extremity distal to the point of catheter insertion was checked and found to be adequate. Attending was present for the entire procedure. Estimated Blood Loss: 5 The patient tolerated the procedure well and there were no complications. Was there an assistant clinical nurse manager present: Yes Sewing Department Supervisor: Lakshmi Arnold Estimated blood loss (cc): 5 Specimen: none Pathology: none sent Condition: stable Disposition: floor
[2019-05-02] MEDS ORDERED: (Tiotropium Br/Olodaterol Hcl [Stiolto Respimat Inhaler]) IH SCH (09:00)
[2019-05-02] MEDS ORDERED: (Fluticasone Furoate [Arnuity Ellipta] 1 PUFF) IH SCH (09:00)
[2019-05-02] MEDS ORDERED: Multivit/Ca/Min/Fe/FA 1 TAB TABLET PO SCH (09:00)
[2019-05-02] MEDS ORDERED: Cholecalciferol (D-3) 1,000 UNIT TABLET PO SCH (09:00)
[2019-05-02] MEDS ORDERED: Spironolactone 25 MG TABLET PO SCH (09:00)
--- NOTE | 2019-05-02 09:33 | Pulmonology Consult Note ---
<McgovernGerry S - Last Filed: 05/02/19 10:51> Date of Encounter: 05/02/19 Time of Encounter: 10:51 Assessment and Plan (1) Sepsis Current Visit: Yes Status: Acute Sepsis likely secondary to PNA, likely CAP - pt does have underlying structural lung disease and is high risk for complications XR from admission negative for acute cardiopulmonary disease CT scan from admission 1. No evidence of pulmonary embolus. 2. Mild media stinal and hilar adenopathy. Calcified mediastinal lymph nodes. - Scattered tree in bud infiltrates throughout the lungs. This may be on an inflammatory, infectious less likely autoimmune basis. - There is also bronchial wall thickening. Findings suggest UIP Repeat XR after CVC placement showed no acute abnormality Pt moved to ICU for vasopressor support, MAP was <65 Meets SIRS criteria for body temperature <96.8, WBC 13.1 Lactic acid 1.4 Procalcitonin 0.36 Plan: - d/c rocephin; continue azithromycin, zosyn and vancomycin day 1 - sputum cx pending - blood cx pending - legionella/strep pneumo antigens pending - respiratory infxn panel pending - continue methylprednisolone 40mg IVP q8hr, plan to de-escalate to q12 hr tomorrow if clinically improving - random cortisol pending, TSH pending - MRSA swab pending, plan to de-escalate abx depending on results - continue levophed, keep MAP>65 Qualifiers: Qualified Code(s): A41.9 - Sepsis, unspecified organism (2) Acute metabolic encephalopathy Current Visit: Yes Status: Acute Likely secondary to acute respiratory failure with hypercapnia. (3) Acute exacerbation of chronic obstructive airways disease Current Visit: Yes Status: Acute See plan as above for sepsis. (4) Acute respiratory failure with hypoxia and hypercapnia Current Visit: Yes Status: Acute Likely secondary to AECOPD. Wears 4L home oxygen at baseline - initial ABG pH 7.23, pCO2 68, pO2 172 - repeat ABG from this morning pH 7.28, pCO2 52, pO2 73 Plan: - continue IV steroids - continue supplemental O2, keep o2 sat >88% - BiPAP prn and hs - abx as above (5) Pneumonia Current Visit: Yes Status: Acute Likely causing AECOPD. See plan above for sepsis. Likely CAP, however, has underlying structural lung disease and is high risk pt. Will add broad spectrum abx for this reason. Qualifiers: Pneumonia type: due to unspecified organism Laterality: unspecified laterality Lung location: unspecified part of lung Qualified Code(s): J18.9 - Pneumonia, unspecified organism (6) CHF (congestive heart failure) Current Visit: Yes Status: Acute Chronic. BNP elevated at 284. Does not appear fluid overloaded on exam. No previous cardiac ECHO available. ECHO from 05/02/19: LVEF 60-65%, normal LV chamber size/wall thickness and fxn, mild LV diastolic dysfxn, normal RV structure and function, no pHTN/vavlular dysfxn. Qualifiers: Qualified Code(s): I50.9 - Heart failure, unspecified (7) DVT prophylaxis Current Visit: Yes Status: Acute sq heparin History of Present Illness Consult date: 05/02/19 Requesting physician: Millicent Gant Reason for consult: other (septic shock, vasopressor support) Chief complaint: JE, AMS History of present illness: Mrs. Ponce 79-year-old female with a PMH of CHF and COPD who presented to [facility] ED on 05/02/19 for respiratory distress and altered mental status. She is very difficult to obtain a history from, so most information taken from previous notes and chart review. Per history obtained from family, patient reportedly was more confused and short of breath over the last few days. They report that today, she was coughing up blood-streaked sputum and developed increased confusion. Paramedics reported that patients O2 saturation was 64% on arrival, which subsequently improved with application of nonrebreather. When the pt arrived to [facility] she was found to have vital signs were significant for elevated temperature at 99.9, heart rate 120, respiratory rate 35, blood pressure 126/64, and O2 saturation 98% on 15 L via nonrebreather. Labs demonstrated elevated white count at 19.8, low hemoglobin at 9.6, elevated creatinine at 1.22, and elevated BNP at 201. CXR demonstrated no acute process. CT of the head demonstrated no acute intracranial abnormality. CTA of the chest showed no evidence of pulmonary embolism, mild mediastinal and hilar adenopathy, calcified mediastinal lymph nodes, scattered tree-in-bud infiltrates throughout the lungs with bronchial wall thickening suggestive of UIP. The pt was subsequently transferred to ICU for further care after becoming h ypotensive and requiring pressor support. She had a CVC inserted and was started on levophed. Daughter was at bedside and confirms the history, states that the pt lives with her at home. Past Med Surg Social Fam HX - Past Medical History Medical history: CHF, COPD Psychiatric history: anxiety - Past Surgical History Additional surgical history: tubal - Social History Smoking Status: Former smoker Smokeless Tobacco Status: No Alcohol use: none Drug use: none Medications and Allergies ALPRAZolam [Xanax 1 MG Tablet] 1 mg PO BID 05/01/19 [History] Albuterol Sulfate [Ventolin Hfa] 2 puff IH Q4H PRN 05/01/19 [History] Atorvastatin Calcium 80 mg PO DAILY 05/01/19 [History] Cholecalciferol (D-3) [Vitamin D] 2,000 unit PO DAILY 05/01/19 [History] Duloxetine HCl [Cymbalta] 60 mg PO BID 05/01/19 [History] Fluticasone Furoate [Arnuity Ellipta] 1 puff IH DAILY 05/01/19 [History] Ibuprofen [Ibu] 800 mg PO TID PRN 05/01/19 [History] Lactulose 30 ml PO BID PRN 05/01/19 [History] Metoprolol [Lopressor] 25 mg PO BID 05/01/19 [History] Montelukast [Singulair] 10 mg PO DAILY 05/01/19 [History] Multivitamin [Daily Multiple Vitamin] 1 each PO DAILY 05/01/19 [History] Nitroglycerin [Nitrostat] 0.4 mg SL Q5MIN PRN 05/01/19 [History] Omeprazole [PriLOSEC] 20 mg PO DAILY 05/01/19 [History] Spironolactone [Aldactone] 25 mg PO DAILY 05/01/19 [History] Tiotropium Br/Olodaterol HCl [Stiolto Respimat Inhal [place]] 2 puff IH DAILY 05/01/19 [History] Allergy/AdvReac Type Severity Reaction Status Date / Time acetaminophen [From Vicodin] AdvReac Vomiting Verified 05/01/19 22:21 Amoxicillin [From Augmentin] AdvReac Abdominal Verified 05/01/19 22:21 Pain ciprofloxacin AdvReac Vomiting Verified 05/01/19 22:21 clavulanic acid AdvReac Abdominal Verified 05/01/19 22:21 [From Augmentin] Pain hydrocodone [From Vicodin] AdvReac Vomiting Verified 05/01/19 22:21 ROS unobtainable: due to mental status All Systems: The remainder of the systems were reviewed and are negative Physical Examination Vital Signs: Vital Signs, Last 4 Hours Temp Pulse Resp BP Pulse Ox 05/02/19 09:00 83 16 127/64 98 05/02/19 08:37 78 05/02/19 08:00 96.5 F L 73 16 124/65 98 05/02/19 07:21 97.6 F 74 13 80/70 99 05/02/19 07:15 75 18 80/70 99 05/02/19 06:30 72 18 72/40 98 05/02/19 05:45 71 16 81/39 100 General appearance: lethargic, appears uncomfortable Eyes: nonicteric ENT: oropharynx dry Effort: mildly labored Auscultation: right: wheezes, bilateral: diminished breath sounds Cardiovascular: regular rate and rhythm Gastrointestinal: soft, non-tender, non-distended Integumentary: normal Extremities: no cyanosis, no edema, no clubbing, pink and warm, pulses normal Musculoskeletal: no deformities non-focal exam anxious Results - Laboratory Findings CBC and BMP: 05/02/19 04:15 05/02/19 04:15 ABG ABG pH 7.23 pH Units (7.32-7.45) L 05/01/19 21:47 ABG pCO2 68 mmHg (35-45) H 05/01/19 21:47 ABG pO2 172 mmHg (85-104) H 05/01/19 21:47 ABG O2 Saturation 99 % (95-98) H 05/01/19 21:47 Abnormal lab findings: Abnormal lab results WBC 13.1 K/mcL (4.3-11.1) H 05/02/19 04:15 RBC 3.55 M/mcL (3.82-4.97) L 05/02/19 04:15 Hgb 10.3 g/dL (11.5-15.4) L 05/02/19 04:15 Hct 33.4 % (35.3-44.9) L 05/02/19 04:15 MCHC 30.8 g/dL (31.6-35.5) L 05/02/19 04:15 11.1 K/mcL (1.6-8.9) H 05/02/19 04:15 2.5 K/mcL (0.0-1.3) H 05/01/19 21:41 ABG pH 7.23 pH Units (7.32-7.45) L 05/01/19 21:47 ABG pCO2 68 mmHg (35-45) H 05/01/19 21:47 ABG pO2 172 mmHg (85-104) H 05/01/19 21:47 ABG HCO3 28 mEq/L (21-27) H 05/01/19 21:47 ABG Total CO2 30 mEq/L (20-26) H 05/01/19 21:47 ABG O2 Saturation 99 % (95-98) H 05/01/19 21:47 Chloride 108 mEq/L (98-107) H 05/02/19 04:15 1.22 mg/dL (0.60-1.20) H 05/01/19 21:41 Est GFR ( Amer) 51 (> 60) L 05/01/19 21:41 Est GFR (Non-Af Amer) 53 (> 60) L 05/02/19 04:15 Glucose 184 mg/dL (70-105) H 05/02/19 04:15 POC Glucose 176 mg/dL (70-99) H 05/02/19 04:17 302 (280-300) H 05/02/19 04:15 Calcium 8.5 mg/dL (8.6-10.3) L 05/02/19 04:15 B-Natriuretic Peptide 284 pg/mL (Less than 100) H 05/02/19 04:15 0.36 ng/mL (0.00-0.15) H 05/02/19 05:45 Cloudy (Clear) A 05/01/19 22:30 100 mg/dL (Neg-Trace) H 05/01/19 22:30 Small (Negative) H 05/01/19 22:30 3-5 per hpf (0-3) H 05/01/19 22:30 Ur Squamous Epith Cells Many per lpf (None-Few) H 05/01/19 22:30 Hyaline Casts Many per lpf (None-Few) H 05/01/19 22:30 - Microbiology Findings Microbiology Findings: Microbiology, Last 48 Hours 05/01/19 22:14 Blood Culture - Preliminary Peripheral Venipuncture Culture is incubating and being continuously monitored for growth. Final report to follow. 05/01/19 22:12 Blood Culture - Preliminary Peripheral Venipuncture Culture is incubating and being continuously monitored for growth. Final report to follow. - Clinical Findings Intake & Output: Intake & Output 05/01/19 05/02/19 05/02/19 23:59 07:59 15:59 Intake Total 4250 / 4250 Output Total 400 / 400 Balance 3850 / 3850 Weight 78.88 kg 79 kg Consult Discharge Plan - Plan Referrals: Cirilo Dacosta MD [Primary Care Provider] - <Christianne Salter - Last Filed: 05/02/19 19:30> Date of Encounter: 05/02/19 All Systems: The remainder of the systems were reviewed and are negative Physical Examination Vital Signs: Vital Signs, Last 4 Hours Temp Pulse Resp BP Pulse Ox 05/02/19 18:00 79 16 111/60 94 05/02/19 17:00 82 14 113/60 97 05/02/19 16:43 97.8 F 05/02/19 16:00 78 20 113/60 99 Results - Laboratory Findings CBC and BMP: 05/02/19 04:15 05/02/19 04:15 ABG ABG pH 7.28 pH Units (7.32-7.45) L 05/02/19 10:45 ABG pCO2 52 mmHg (35-45) H 05/02/19 10:45 ABG pO2 73 mmHg (85-104) L 05/02/19 10:45 ABG O2 Saturation 92 % (95-98) L 05/02/19 10:45 Abnormal lab findings: Abnormal lab results WBC 13.1 K/mcL (4.3-11.1) H 05/02/19 04:15 RBC 3.55 M/mcL (3.82-4.97) L 05/02/19 04:15 Hgb 10.3 g/dL (11.5-15.4) L 05/02/19 04:15 Hct 33.4 % (35.3-44.9) L 05/02/19 04:15 MCHC 30.8 g/dL (31.6-35.5) L 05/02/19 04:15 11.1 K/mcL (1.6-8.9) H 05/02/19 04:15 2.5 K/mcL (0.0-1.3) H 05/01/19 21:41 ABG pH 7.28 pH Units (7.32-7.45) L 05/02/19 10:45 ABG pCO2 52 mmHg (35-45) H 05/02/19 10:45 ABG pO2 73 mmHg (85-104) L 05/02/19 10:45 ABG HCO3 28 mEq/L (21-27) H 05/01/19 21:47 ABG Total CO2 30 mEq/L (20-26) H 05/01/19 21:47 ABG O2 Saturation 92 % (95-98) L 05/02/19 10:45 ABG Base Excess -3 mEq/L (-2 to 3) L 05/02/19 10:45 Chloride 108 mEq/L (98-107) H 05/02/19 04:15 1.22 mg/dL (0.60-1.20) H 05/01/19 21:41 Est GFR ( Amer) 51 (> 60) L 05/01/19 21:41 Est GFR (Non-Af Amer) 53 (> 60) L 05/02/19 04:15 Glucose 184 mg/dL (70-105) H 05/02/19 04:15 POC Glucose 169 mg/dL (70-99) H 05/02/19 07:22 302 (280-300) H 05/02/19 04:15 Calcium 8.5 mg/dL (8.6-10.3) L 05/02/19 04:15 B-Natriuretic Peptide 284 pg/mL (Less than 100) H 05/02/19 04:15 0.36 ng/mL (0.00-0.15) H 05/02/19 05:45 TSH 0.239 mcIU/mL (0.340-5.600) L 05/02/19 11:19 Cloudy (Clear) A 05/01/19 22:30 100 mg/dL (Neg-Trace) H 05/01/19 22:30 Small (Negative) H 05/01/19 22:30 3-5 per hpf (0-3) H 05/01/19 22:30 Ur Squamous Epith Cells Many per lpf (None-Few) H 05/01/19 22:30 Hyaline Casts Many per lpf (None-Few) H 05/01/19 22:30 Positive (Negative) A 05/02/19 11:22 - Microbiology Findings Microbiology Findings: Microbiology, Last 48 Hours 05/01/19 22:14 Blood Culture - Preliminary Peripheral Venipuncture Culture is incubating and being continuously monitored for growth. Final report to follow. 05/01/19 22:12 Blood Culture - Preliminary Peripheral Venipuncture Culture is incubating and being continuously monitored for growth. Final report to follow. - Clinical Findings Intake & Output: Intake & Output 05/02/19 05/02/19 05/02/19 07:59 15:59 23:59 Intake Total 4250 / 4628 278 / 4628 100 / 4628 Output Total 400 / 650 250 / 650 Balance 3850 / 3978 28 / 3978 100 / 3978 Weight 79 kg - Attending Attestation I saw and evaluated this patient and my medical decision-making was reviewed with the Resident Physician. I agree with the documented findings, disposition and treatment plan as described except to the extent set forth below. We independently had [id number] contact with the patient I spent 40 minutes of Critical Care time with this patient. It involved decision making of high complexity to assess, manipulate, and support vital organ system failure and/or to prevent further life threatening deterioration of the patient's condition. The time involved in the performance of separately reportable procedures was not counted toward critical care time. Patient seen and examined at bedside Labs, radiology, chart personally reviewed. Management was reviewed during multidisciplinary critical care rounds. FEATURES REPORTER: Patient is conscious more alert than before following commands no focal neurological deficit. Pulm: Patient has acceptable oxygenation and ventilation patient has acute hypoxic hypercarbic respiratory failure most likely secondary to pneumonia patient had a CTA which showed negative for pulmonary embolism patient is on BiPAP ventilation slowly improving. Patient daughter who is the POA expressed their wish that patient never wanted to be intubated in the case of worsening respiratory failure Cards: Patient is in shock most likely secondary to pneumonia to look for other sources especially intra-abdominal will get a repeat lactate to see any evidence of tissue hyperperfusion. Patient is on levophed to keep the map greater than 65. FEN-GI: Patient is on BiPAP will keep her nothing by mouth tonight to keep her on PPI. Renal: Labs and output are output were reviewed ID: Procalcitonin was elevated suggestive of bacterial infection most likely source is pneumonia we will keep looking for other sources. 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 Lines: All lines examined without evidence of infection : Dispo: patient is critically ill with septic shock CODE:[id number]
[2019-05-02] MEDS ORDERED: Piperacillin/Tazobactam 3.375 GM in 0.9 % Sodium Chloride Mini Bag 100 ML IVPB SCH (10:00)
[2019-05-02 10:48] LABS: ABG Base Excess -3 mEq/L (-2 to 3); ABG HCO3 24 mEq/L (21-27); ABG Oxygen Saturation 92 % (95-98); ABG PCO2 52 mmHg (35-45); ABG PH 7.28 pH Units (7.32-7.45); ABG PO2 73 mmHg (85-104); ABG TCO2 26 mEq/L (20-26)
[2019-05-02] MEDS: MethylPREDNISolone 40 MG/ML VIAL IVP SCH ×2 (12:01→16:19)
[2019-05-02 12:07] LABS: Thyroid Stimulating Hormone 0.239 mcIU/mL (0.340-5.600)
[2019-05-02 12:25] LABS: Adenovirus Not Detected (Not Detect); Bordetella Pertussis Not Detected (Not Detect); Chlamydophila pneumoniae Not Detected (Not Detect); Coronavirus 229E Not Detected (Not Detect); Coronavirus HKU1 Not Detected (Not Detect); Coronavirus NL63 Not Detected (Not Detect); Coronavirus OC43 Not Detected (Not Detect); Human Metapneumovirus Not Detected (Not Detect); Human Rhinovirus/Enterovirus Not Detected (Not Detect); Influenza A Subtype 2009 H1 Not Detected (Not Detect); Influenza A Untypeable Not Detected (Not Detect); Influenza B Not Detected (Not Detect); Mycoplasma pneumoniae Not Detected (Not Detect); Parainfluenza Virus 1 Not Detected (Not Detect); Parainfluenza Virus 2 Not Detected (Not Detect); Parainfluenza Virus 3 Not Detected (Not Detect); Parainfluenza Virus 4 Not Detected (Not Detect); Respiratory Syncytial Virus Not Detected (Not Detect)
[2019-05-02] MEDS ORDERED: *HR* Heparin 5,000 UNIT/ML VIAL SQ SCH (14:00)
[2019-05-02] MEDS ORDERED: Ipratropium/Albuterol Neb 3 ML IH SCH (16:00)
[2019-05-02] MEDS: Piperacillin/Tazobactam 3.375 GM in 0.9 % Sodium Chloride Mini Bag 100 ML IVPB SCH (19:40)
[2019-05-02] MEDS: *HR* Heparin 5,000 UNIT/ML VIAL SQ SCH (20:59)
[2019-05-02] MEDS ORDERED: cefTRIAXone 1,000 MG in Water for inj. (sterile) 20 ML 10 ML IVP SCH (21:00)
[2019-05-02] MEDS ORDERED: Azithromycin 500 MG in D5% in Water 250 ML IVPB SCH ×2 (21:00)
[2019-05-02] MEDS ORDERED: MOMETASONE FUROATE 100 mcg Inhaler IH SCH (22:00)
[2019-05-03] MEDS: Piperacillin/Tazobactam 3.375 GM in 0.9 % Sodium Chloride Mini Bag 100 ML IVPB SCH ×3 (03:12→20:50)
[2019-05-03 03:20] LABS: Hematocrit 31.5 % (35.3-44.9); Mean Corpuscular HGB Conc 31.7 g/dL (31.6-35.5); Mean Corpuscular Hemoglobin 29.5 pg (28.0-33.3); Mean Corpuscular Volume 92.9 fL (83.0-100.0); Mean Platelet Volume 10.3 fL (9.4-12.4); Platelet Count 207 K/mcL (140-400); Red Blood Count 3.39 M/mcL (3.82-4.97); Red Cell Distribution Width 13.4 % (11.5-14.5); White Blood Count 15.9 K/mcL (4.3-11.1)
[2019-05-03 03:42] LABS: BUN/Creatinine Ratio 23 (6-26); Blood Urea Nitrogen 19 mg/dL (8-23); Calcium 9.1 mg/dL (8.6-10.3); Carbon Dioxide 25 mEq/L (23-29); Chloride 112 mEq/L (98-107); Glucose 141 mg/dL (70-105); Osmolality,Calculated 301 (280-300); Potassium 3.8 mEq/L (3.5-5.1); Sodium 143 mEq/L (136-145); eGFR For African Americans > 60 (> 60); eGFR For Non-African Americans > 60 (> 60)
[2019-05-03] MEDS: *HR* Heparin 5,000 UNIT/ML VIAL SQ SCH ×3 (04:53→20:51)
--- NOTE | 2019-05-03 06:38 | Pulmonology Progress Note ---
<Gerry Mcgovern S - Last Filed: 05/03/19 10:46> Date of Encounter: 05/03/19 Time of Encounter: 07:18 Assessment and Plan (1) Sepsis Current Visit: Yes Status: Resolved Sepsis likely secondary to PNA, likely CAP - pt does have underlying structural lung disease and is high risk for complications - resolved XR from admission negative for acute cardiopulmonary disease CT scan from admission 1. No evidence of pulmonary embolus. 2. Mild mediastinal and hilar adenopathy. Calcified mediastinal lymph nodes. - Scattered tree in bud infiltrates throughout the lungs. This may be on an inflammatory, infectious less likely autoimmune basis. - There is also bronchial wall thickening. Findings suggest UIP Repeat XR after CVC placement showed no acute abnormality Pt moved to ICU for vasopressor support, MAP was <65; levophed has since been weaned off and the pt is maintaining BP Meets SIRS criteria for HR>90, WBC Lactic acid 1.4, repeat on 05/02 was 0.5 Procalcitonin 0.36 Plan: - d/c rocephin; continue azithromycin, zosyn and vancomycin day 2; vancomycin for a total of 3 doses - sputum cx pending - blood cx pending ngtd - legionella/strep pneumo antigens pending - respiratory infxn panel pending - de-escalated steroids to q12 from q8h - plan to transfer the pt out of the ICU today to the floor if she remains clinically stable keep CVC in place for another 24 hrs incase pt does become hypotensive again BiPAP prn and hs, using during naps Qualifiers: Sepsis type: sepsis due to unspecified organism Qualified Code(s): A41.9 - Sepsis, unspecified organism (2) Acute metabolic encephalopathy Current Visit: Yes Status: Resolved Likely secondary to acute respiratory failure with hypercapnia. Has resolved. Pt is mentating much better. (3) Acute exacerbation of chronic obstructive airways disease Current Visit: Yes Status: Acute See plan as above for sepsis. (4) Acute respiratory failure with hypoxia and hypercapnia Current Visit: Yes Status: Acute Likely secondary to AECOPD. Wears 4L home oxygen at baseline - initial ABG pH 7.23, pCO2 68, pO2 172 - repeat ABG from 05/02: pH 7.28, pCO2 52, pO2 73 Plan: - continue IV steroids - continue supplemental O2, keep o2 sat >88% - BiPAP prn and hs - abx as above - one time dose of lasix IVP once (5) Pneumonia Current Visit: Yes Status: Acute Likely causing AECOPD. See plan above for sepsis. Likely CAP, however, has underlying structural lung disease and is high risk pt. Will add broad spectrum abx for this reason. Qualifiers: Pneumonia type: due to unspecified organism Laterality: unspecified laterality Lung location: unspecified part of lung Qualified Code(s): J18.9 - Pneumonia, unspecified organism (6) CHF (congestive heart failure) Current Visit: Yes Status: Acute Chronic. BNP elevated at 284. Does not appear fluid overloaded on exam. No previous cardiac ECHO available. ECHO from 05/02/19: LVEF 60-65%, normal LV chamber size/wall thickness and fxn, mild LV diastolic dysfxn, normal RV structure and function, no pHTN/vavlular dysfxn. Resuming lopressor BID. Pt does take 25 mg PO BID at home, will start at 12.5mg PO BID and monitor pt during first dose. Qualifiers: Heart failure type: diastolic Heart failure chronicity: chronic Qualified Code(s): I50.32 - Chronic diastolic (congestive) heart failure (7) DVT prophylaxis Current Visit: Yes Status: Acute sq heparin Subjective Principal diagnosis: hypotension, sepsis Interval history: Pt seen at bedside. She is feeling much better today. She has no acute complaints or concerns. Plan to transfer out of ICU today. Objective PUL Vital signs: Last Vital Signs Temp 97.4 F L 05/03/19 03:39 Pulse 110 05/03/19 05:53 Resp 20 05/03/19 05:53 BP 117/59 05/03/19 05:53 Pulse Ox 98 05/03/19 05:53 General appearance: no acute distress, alert Eyes: nonicteric ENT: oropharynx dry Effort: mildly labored Auscultation: bilateral: diminished breath sounds, other (some mild coarse breath sounds) Cardiovascular: other (tacycardic, regular rhythm) Gastrointestinal: soft, non-tender, non-distended Integumentary: normal Extremities: pink and warm, pulses normal, no ischemia or petechiae Musculoskeletal: no deformities normal mental status, non-focal exam mood appropriate, affect normal Results - Laboratory Findings CBC and BMP: 05/03/19 03:14 05/03/19 03:14 ABG ABG pH 7.28 pH Units (7.32-7.45) L 05/02/19 10:45 ABG pCO2 52 mmHg (35-45) H 05/02/19 10:45 ABG pO2 73 mmHg (85-104) L 05/02/19 10:45 ABG O2 Saturation 92 % (95-98) L 05/02/19 10:45 Abnormal lab findings: Abnormal lab results WBC 15.9 K/mcL (4.3-11.1) H 05/03/19 03:14 RBC 3.39 M/mcL (3.82-4.97) L 05/03/19 03:14 Hgb 10.0 g/dL (11.5-15.4) L 05/03/19 03:14 Hct 31.5 % (35.3-44.9) L 05/03/19 03:14 MCHC 30.8 g/dL (31.6-35.5) L 05/02/19 04:15 11.1 K/mcL (1.6-8.9) H 05/02/19 04:15 2.5 K/mcL (0.0-1.3) H 05/01/19 21:41 ABG pH 7.28 pH Units (7.32-7.45) L 05/02/19 10:45 ABG pCO2 52 mmHg (35-45) H 05/02/19 10:45 ABG pO2 73 mmHg (85-104) L 05/02/19 10:45 ABG HCO3 28 mEq/L (21-27) H 05/01/19 21:47 ABG Total CO2 30 mEq/L (20-26) H 05/01/19 21:47 ABG O2 Saturation 92 % (95-98) L 05/02/19 10:45 ABG Base Excess -3 mEq/L (-2 to 3) L 05/02/19 10:45 Chloride 112 mEq/L (98-107) H 05/03/19 03:14 1.22 mg/dL (0.60-1.20) H 05/01/19 21:41 Est GFR ( Amer) 51 (> 60) L 05/01/19 21:41 Est GFR (Non-Af Amer) 53 (> 60) L 05/02/19 04:15 Glucose 141 mg/dL (70-105) H 05/03/19 03:14 POC Glucose 151 mg/dL (70-99) H 05/02/19 07:52 301 (280-300) H 05/03/19 03:14 Calcium 8.5 mg/dL (8.6-10.3) L 05/02/19 04:15 B-Natriuretic Peptide 284 pg/mL (Less than 100) H 05/02/19 04:15 0.36 ng/mL (0.00-0.15) H 05/02/19 05:45 TSH 0.239 mcIU/mL (0.340-5.600) L 05/02/19 11:19 Cloudy (Clear) A 05/01/19 22:30 100 mg/dL (Neg-Trace) H 05/01/19 22:30 Small (Negative) H 05/01/19 22:30 3-5 per hpf (0-3) H 05/01/19 22:30 Ur Squamous Epith Cells Many per lpf (None-Few) H 05/01/19 22:30 Hyaline Casts Many per lpf (None-Few) H 05/01/19 22:30 Positive (Negative) A 05/02/19 11:22 - Microbiology Findings Microbiology Findings: Microbiology, Last 48 Hours 05/01/19 22:14 Blood Culture - Preliminary Peripheral Venipuncture Culture is incubating and being continuously monitored for growth. Final report to follow. 05/01/19 22:12 Blood Culture - Preliminary Peripheral Venipuncture Culture is incubating and being continuously monitored for growth. Final report to follow. - Clinical Findings Intake & Output: Intake & Output 05/02/19 05/02/19 05/03/19 15:59 23:59 07:59 Intake Total 278 / 4978 450 / 4978 Output Total 250 / 850 200 / 850 75 / 75 Balance 4127 250 / 4128 -75 / -75 Weight 78.5 kg Consult Discharge Plan - Plan Referrals: Cirilo Dacosta MD [Primary Care Provider] - <Christianne Salter - Last Filed: 05/03/19 22:28> Date of Encounter: 05/03/19 Objective PUL Vital signs: Last Vital Signs Temp 98.0 F 05/03/19 19:38 Pulse 82 05/03/19 22:00 Resp 18 05/03/19 22:00 BP 107/54 05/03/19 22:00 Pulse Ox 96 05/03/19 22:00 Results - Laboratory Findings CBC and BMP: 05/03/19 03:14 05/03/19 03:14 ABG ABG pH 7.28 pH Units (7.32-7.45) L 05/02/19 10:45 ABG pCO2 52 mmHg (35-45) H 05/02/19 10:45 ABG pO2 73 mmHg (85-104) L 05/02/19 10:45 ABG O2 Saturation 92 % (95-98) L 05/02/19 10:45 Abnormal lab findings: Abnormal lab results WBC 15.9 K/mcL (4.3-11.1) H 05/03/19 03:14 RBC 3.39 M/mcL (3.82-4.97) L 05/03/19 03:14 Hgb 10.0 g/dL (11.5-15.4) L 05/03/19 03:14 Hct 31.5 % (35.3-44.9) L 05/03/19 03:14 MCHC 30.8 g/dL (31.6-35.5) L 05/02/19 04:15 11.1 K/mcL (1.6-8.9) H 05/02/19 04:15 2.5 K/mcL (0.0-1.3) H 05/01/19 21:41 ABG pH 7.28 pH Units (7.32-7.45) L 05/02/19 10:45 ABG pCO2 52 mmHg (35-45) H 05/02/19 10:45 ABG pO2 73 mmHg (85-104) L 05/02/19 10:45 ABG HCO3 28 mEq/L (21-27) H 05/01/19 21:47 ABG Total CO2 30 mEq/L (20-26) H 05/01/19 21:47 ABG O2 Saturation 92 % (95-98) L 05/02/19 10:45 ABG Base Excess -3 mEq/L (-2 to 3) L 05/02/19 10:45 Chloride 112 mEq/L (98-107) H 05/03/19 03:14 1.22 mg/dL (0.60-1.20) H 05/01/19 21:41 Est GFR ( Amer) 51 (> 60) L 05/01/19 21:41 Est GFR (Non-Af Amer) 53 (> 60) L 05/02/19 04:15 Glucose 141 mg/dL (70-105) H 05/03/19 03:14 POC Glucose 151 mg/dL (70-99) H 05/02/19 07:52 301 (280-300) H 05/03/19 03:14 Calcium 8.5 mg/dL (8.6-10.3) L 05/02/19 04:15 B-Natriuretic Peptide 284 pg/mL (Less than 100) H 05/02/19 04:15 0.36 ng/mL (0.00-0.15) H 05/02/19 05:45 TSH 0.239 mcIU/mL (0.340-5.600) L 05/02/19 11:19 Cloudy (Clear) A 05/01/19 22:30 100 mg/dL (Neg-Trace) H 05/01/19 22:30 Small (Negative) H 05/01/19 22:30 3-5 per hpf (0-3) H 05/01/19 22:30 Ur Squamous Epith Cells Many per lpf (None-Few) H 05/01/19 22:30 Hyaline Casts Many per lpf (None-Few) H 05/01/19 22:30 Positive (Negative) A 05/02/19 11:22 - Microbiology Findings Microbiology Findings: Microbiology, Last 48 Hours 05/03/19 07:43 Sputum Culture - Preliminary Sputum 05/03/19 10:46 Legionella Antigen - Final Urine,Catheterized (Straight) Streptococcus pneumoniae Antigen (M - Final 05/01/19 22:14 Blood Culture - Preliminary Peripheral Venipuncture Culture is incubating and being continuously monitored for growth. Final report to follow. 05/01/19 22:12 Blood Culture - Preliminary Peripheral Venipuncture Culture is incubating and being continuously monitored for growth. Final report to follow. - Clinical Findings Intake & Output: Intake & Output 05/03/19 05/03/19 05/03/19 07:59 15:59 23:59 Intake Total 200 / 200 Output Total 75 / 1325 900 / 1325 350 / 1325 Balance 125 / -1125 -900 / -1125 -350 / -1125 Weight 78.5 kg - Attending Attestation - Attending Attestation I saw and evaluated this patient and my medical decision-making was reviewed with the Resident Physician. I agree with the documented findings, disposition and treatment plan as described except to the extent set forth below. We independently had [id number] contact with the patient Patient seen and examined at bedside Labs, radiology, chart personally reviewed. Management was reviewed during multidisciplinary critical care rounds. 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 Patient daughter who is the POA expressed their wish that patient never wanted to be intubated in the case of worsening respiratory failure 05/03 patient acceptable oxygenation and ventilation she is off BiPAP patient V/Q mismatch most likely due to underlying COPD exacerbation complicated by pneumonia to continue bronchodilators, steroids and antibiotics Cards: Patient is in shock most likely secondary to pneumonia to look for other sources especially intra-abdominal will get a repeat lactate to see any evidence of tissue hyperperfusion. Patient is on levophed to keep the map greater than 65. 05/03 patient septic shock is resolved she is off vasopressors. FEN-GI: Advance diet as tolerated. Renal: Labs and output are output were reviewed ID: Procalcitonin was elevated suggestive of bacterial infection most likely source is pneumonia we will keep looking for other sources. 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 Lines: All lines examined without evidence of infection : Dispo: patient can be transferred to medical telemetry CODE:[id number]
[2019-05-03] MEDS ORDERED: Multivit/Ca/Min/Fe/FA 1 TAB TABLET PO SCH (09:00)
[2019-05-03] MEDS ORDERED: Spironolactone 25 MG TABLET PO SCH (09:00)
[2019-05-03] MEDS ORDERED: Cholecalciferol (D-3) 1,000 UNIT TABLET PO SCH (09:00)
[2019-05-03] MEDS ORDERED: MOMETASONE FUROATE 100 mcg Inhaler IH SCH (10:00)
[2019-05-03] MEDS ORDERED: Ipratropium/Albuterol Neb 3 ML IH SCH (10:00)
[2019-05-03] MEDS ORDERED: Furosemide 20 MG/2 ML VIAL IVP ONE (10:45)
[2019-05-03] MEDS ORDERED: ALPRAZolam 1 MG TABLET PO SCH (11:30)
[2019-05-03] MEDS ORDERED: Nitroglycerin 0.4 MG TAB.SUBL SL PRN (14:28)
[2019-05-03] MEDS ORDERED: Norepinephrine 4 MG in D5% in Water 250 ML IVC SCH (14:28)
[2019-05-03] MEDS ORDERED: Naloxone 0.4 MG/ML INJ IVP PRN (14:28)
--- NOTE | 2019-05-03 14:46 | Electrocardiograph Report ---
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
[2019-05-03] MEDS: Ipratropium/Albuterol Neb 3 ML IH SCH (15:18)
[2019-05-03] MEDS ORDERED: MethylPREDNISolone 40 MG/ML VIAL IVP SCH ×2 (18:00)
[2019-05-03] MEDS: MethylPREDNISolone 40 MG/ML VIAL IVP SCH (18:22)
[2019-05-03] MEDS: ALPRAZolam 1 MG TABLET PO SCH (20:51)
[2019-05-03] MEDS ORDERED: Azithromycin 500 MG in D5% in Water 250 ML IVPB SCH (21:00)
[2019-05-04] MEDS: MOMETASONE FUROATE 100 mcg Inhaler IH SCH ×3 (03:11→22:47)
[2019-05-04] MEDS: Piperacillin/Tazobactam 3.375 GM in 0.9 % Sodium Chloride Mini Bag 100 ML IVPB SCH ×3 (03:45→20:41)
[2019-05-04 04:14] LABS: Hematocrit 31.3 % (35.3-44.9); Hemoglobin 10.1 g/dL (11.5-15.4); Mean Corpuscular HGB Conc 32.3 g/dL (31.6-35.5); Mean Corpuscular Hemoglobin 29.6 pg (28.0-33.3); Mean Corpuscular Volume 91.8 fL (83.0-100.0); Mean Platelet Volume 10.6 fL (9.4-12.4); Platelet Count 234 K/mcL (140-400); Red Blood Count 3.41 M/mcL (3.82-4.97); Red Cell Distribution Width 13.4 % (11.5-14.5)
[2019-05-04] MEDS: Ipratropium/Albuterol Neb 3 ML IH SCH ×5 (04:18→22:47)
[2019-05-04 04:20] LABS: BUN/Creatinine Ratio 20 (6-26); Blood Urea Nitrogen 18 mg/dL (8-23); Calcium 8.9 mg/dL (8.6-10.3); Carbon Dioxide 28 mEq/L (23-29); Chloride 106 mEq/L (98-107); Glucose 155 mg/dL (70-105); Osmolality,Calculated 293 (280-300); Potassium 3.5 mEq/L (3.5-5.1); Sodium 139 mEq/L (136-145); eGFR For African Americans > 60 (> 60); eGFR For Non-African Americans 59 (> 60)
[2019-05-04] MEDS: *HR* Heparin 5,000 UNIT/ML VIAL SQ SCH ×3 (05:36→20:42)
[2019-05-04] MEDS: MethylPREDNISolone 40 MG/ML VIAL IVP SCH ×2 (05:36→17:20)
--- NOTE | 2019-05-04 08:12 | Internal Med Progress Note ---
Hospitalist Progress Note - Encounter Date of Encounter: 05/04/19 Time of Encounter: 08:00 - Subjective Interval History: Transferred out of the ICU overnight - Exam Vitals: Temp Pulse Resp BP Pulse Ox 99.2 F 73 17 110/62 95 05/04/19 06:53 05/04/19 06:53 05/04/19 06:53 05/04/19 06:53 05/04/19 06:53 Exam: General: A&O X3, conversant, on BiPAP, pale-appearing Head: atraumatic, normocephalic Eye: PERRL, EOMI, conjuntiva pink, sclera anicteric Neck: Supple, trachea midline; No lymphadenopathy Respiratory: Diminished breath sounds bilaterally. No accessory muscle use, wheezes, rales, or rhonchi Cardiovascular: RRR, +S1, +S2; no murmurs, rubs, gallops Abdomen: Soft, nontender Extremities: warm, radial pulses palpable and symmetrical; no clubbing, edema, or cyanosis Psychiatric: Normal affect, normal mood Skin: Dry, intact - Assessment and Plan (1) Acute respiratory failure with hypoxia and hypercapnia Current Visit: Yes Status: Acute Assessment and Plan: Pt came in with acute on chronic hypoxic and hypercapnioc resp failure 2/2 to pneumonia and COPD exacerbation Imprved on nebs, steroids and antibiotics. Wean oxygen down to baseline and wean steroids to po Overnight BIPAP ordered (2) Sepsis Current Visit: Yes Status: Acute Assessment and Plan: Likley secondary to pneumonia Continue zosyn and azithromycin (3) Acute exacerbation of chronic obstructive airways disease Current Visit: Yes Status: Acute Assessment and Plan: Continue nebs, steroids and antibiotics (4) Pneumonia Current Visit: Yes Status: Acute Assessment and Plan: Continue antibiotics (5) DVT prophylaxis Current Visit: Yes Status: Acute Assessment and Plan: Continue heparin - Time Spent with Patient Total time spent is greater than 50% in coordination of care (as documented) at patient's floor/unit and/or counseling patient: Internal Medicine: Result - Labs CBC & Chem 7: 05/04/19 03:30 05/04/19 03:30 Labs: Short CBC 05/04/19 Range/Units 03:30 WBC 18.0 H (4.3-11.1) K/mcL Hgb 10.1 L (11.5-15.4) g/dL Hct 31.3 L (35.3-44.9) % Plt Count 234 (140-400) K/mcL BMP 05/04/19 03:30 Sodium 139 Potassium 3.5 Chloride 106 Carbon Dioxide 28 BUN 18 Creatinine 0.92 Glucose 155 H Calcium 8.9 - ABG Interpretation ABG results: ABG ABG pH 7.28 pH Units (7.32-7.45) L 05/02/19 10:45 ABG pCO2 52 mmHg (35-45) H 05/02/19 10:45 ABG pO2 73 mmHg (85-104) L 05/02/19 10:45 ABG O2 Saturation 92 % (95-98) L 05/02/19 10:45 Consult Discharge Plan - Plan Referrals: Cirilo Dacosta MD [Primary Care Provider] - (2) Sepsis Qualifiers: Sepsis type: sepsis due to unspecified organism Qualified Code(s): A41.9 - Sepsis, unspecified organism (4) Pneumonia Qualifiers: Pneumonia type: due to unspecified organism Laterality: unspecified laterality Lung location: unspecified part of lung Qualified Code(s): J18.9 - Pneumonia, unspecified organism
[2019-05-04] MEDS: Cholecalciferol (D-3) 1,000 UNIT TABLET PO SCH (10:05)
[2019-05-04] MEDS: Multivit/Ca/Min/Fe/FA 1 TAB TABLET PO SCH (10:06)
[2019-05-04] MEDS: Spironolactone 25 MG TABLET PO SCH (10:07)
[2019-05-04] MEDS: ALPRAZolam 1 MG TABLET PO SCH ×2 (10:07→20:43)
[2019-05-04] MEDS: Azithromycin 250 MG TABLET PO SCH (10:21)
[2019-05-05] MEDS: Ipratropium/Albuterol Neb 3 ML IH SCH ×2 (04:03→11:02)
[2019-05-05] MEDS: Piperacillin/Tazobactam 3.375 GM in 0.9 % Sodium Chloride Mini Bag 100 ML IVPB SCH ×3 (04:37→20:17)
[2019-05-05] MEDS: MethylPREDNISolone 40 MG/ML VIAL IVP SCH ×2 (05:16→18:08)
[2019-05-05] MEDS: *HR* Heparin 5,000 UNIT/ML VIAL SQ SCH ×3 (05:16→22:44)
[2019-05-05 09:13] LABS: Basophils # 0.1 K/mcL (0.0-0.2); Basophils % 0.5 %; Hematocrit 35.5 % (35.3-44.9); Hemoglobin 11.1 g/dL (11.5-15.4); Immature Granulocytes % 7.3 % (0-4); Lymphocytes # 1.1 K/mcL (0.6-4.6); Lymphocytes % 7.7 %; Mean Corpuscular HGB Conc 31.3 g/dL (31.6-35.5); Mean Corpuscular Hemoglobin 29.2 pg (28.0-33.3); Mean Corpuscular Volume 93.4 fL (83.0-100.0); Mean Platelet Volume 10.6 fL (9.4-12.4); Monocytes # 0.7 K/mcL (0.0-1.3); Monocytes % 4.5 %; Neutrophils # 11.7 K/mcL (1.6-8.9); Platelet Count 232 K/mcL (140-400); Red Cell Distribution Width 13.2 % (11.5-14.5); White Blood Count 14.6 K/mcL (4.3-11.1)
[2019-05-05] MEDS: Cholecalciferol (D-3) 1,000 UNIT TABLET PO SCH (09:22)
[2019-05-05] MEDS: Multivit/Ca/Min/Fe/FA 1 TAB TABLET PO SCH (09:23)
[2019-05-05] MEDS: Spironolactone 25 MG TABLET PO SCH (09:23)
[2019-05-05] MEDS: ALPRAZolam 1 MG TABLET PO SCH ×2 (09:23→20:16)
[2019-05-05] MEDS: Azithromycin 250 MG TABLET PO SCH (09:24)
[2019-05-05 09:26] LABS: BUN/Creatinine Ratio 19 (6-26); Blood Urea Nitrogen 18 mg/dL (8-23); Calcium 9.3 mg/dL (8.6-10.3); Carbon Dioxide 29 mEq/L (23-29); Chloride 106 mEq/L (98-107); Glucose 143 mg/dL (70-105); Magnesium 1.9 mg/dL (1.6-2.6); Osmolality,Calculated 294 (280-300); Phosphorous 2.8 mg/dL (2.7-4.5); Potassium 3.4 mEq/L (3.5-5.1); Sodium 140 mEq/L (136-145); eGFR For African Americans > 60 (> 60); eGFR For Non-African Americans 56 (> 60)
--- NOTE | 2019-05-05 10:20 | Internal Med Progress Note ---
Hospitalist Progress Note - Encounter Date of Encounter: 05/05/19 Time of Encounter: 09:00 - Subjective Interval History: No acute events overnight - Exam Vitals: Temp Pulse Resp BP Pulse Ox 98.1 F 78 16 122/83 96 05/05/19 07:42 05/05/19 07:42 05/05/19 07:42 05/05/19 07:42 05/05/19 07:42 Exam: General: A&O X3, conversant, on BiPAP, pale-appearing Head: atraumatic, normocephalic Eye: PERRL, EOMI, conjuntiva pink, sclera anicteric Neck: Supple, trachea midline; No lymphadenopathy Respiratory: Diminished breath sounds bilaterally. No accessory muscle use, whe ezes, rales, or rhonchi Cardiovascular: RRR, +S1, +S2; no murmurs, rubs, gallops Abdomen: Soft, nontender Extremities: warm, radial pulses palpable and symmetrical; no clubbing, edema, or cyanosis Psychiatric: Normal affect, normal mood Skin: Dry, intact - Assessment and Plan (1) Acute respiratory failure with hypoxia and hypercapnia Current Visit: Yes Status: Acute Assessment and Plan: Pt came in with acute on chronic hypoxic and hypercapnioc resp failure 2/2 to pneumonia and COPD exacerbation Imprved on nebs, steroids and antibiotics. Wean oxygen down to baseline and wean steroids to po Patient did not qualify for BIPAP on overnight study Plan to discharge to rehab (2) Sepsis Current Visit: Yes Status: Acute Assessment and Plan: Likely secondary to pneumonia Continue zosyn and azithromycin (3) Acute exacerbation of chronic obstructive airways disease Current Visit: Yes Status: Acute Assessment and Plan: Continue nebs, steroids and antibiotics (4) Pneumonia Current Visit: Yes Status: Acute Assessment and Plan: Continue antibiotics (5) DVT prophylaxis Current Visit: Yes Status: Acute Assessment and Plan: Continue heparin - Time Spent with Patient Total time spent is greater than 50% in coordination of care (as documented) at patient's floor/unit and/or counseling patient: Internal Medicine: Result - Labs CBC & Chem 7: 05/05/19 08:13 05/05/19 08:13 Labs: Short CBC 05/05/19 Range/Units 08:13 WBC 14.6 H (4.3-11.1) K/mcL Hgb 11.1 L (11.5-15.4) g/dL Hct 35.5 (35.3-44.9) % Plt Count 232 (140-400) K/mcL Neutrophils # 11.7 H (1.6-8.9) K/mcL BMP 05/05/19 08:13 Sodium 140 Potassium 3.4 L Chloride 106 Carbon Dioxide 29 BUN 18 Creatinine 0.95 Glucose 143 H Calcium 9.3 - ABG Interpretation ABG results: ABG ABG pH 7.28 pH Units (7.32-7.45) L 05/02/19 10:45 ABG pCO2 52 mmHg (35-45) H 05/02/19 10:45 ABG pO2 73 mmHg (85-104) L 05/02/19 10:45 ABG O2 Saturation 92 % (95-98) L 05/02/19 10:45 Consult Discharge Plan - Plan Referrals: Cirilo Dacosta MD [Primary Care Provider] - (2) Sepsis Qualifiers: Sepsis type: sepsis due to unspecified organism Qualified Code(s): A41.9 - Sepsis, unspecified organism (4) Pneumonia Qualifiers: Pneumonia type: due to unspecified organism Laterality: unspecified laterality Lung location: unspecified part of lung Qualified Code(s): J18.9 - Pneumonia, unspecified organism
[2019-05-05] MEDS: Potassium Chloride Elixir 20 MEQ/15 ML UDC PO SCH ×3 (10:32→17:48)
[2019-05-05] MEDS: MOMETASONE FUROATE 100 mcg Inhaler IH SCH ×2 (11:13→23:10)
[2019-05-05] MEDS: Albuterol 2.5 MG/3 ML NEBULIZER IH SCH ×3 (16:06→23:11)
[2019-05-05] MEDS: Acetylcysteine 10% 2 ML INHSOL IH SCH ×2 (16:07→23:11)
[2019-05-06] MEDS: Piperacillin/Tazobactam 3.375 GM in 0.9 % Sodium Chloride Mini Bag 100 ML IVPB SCH ×2 (03:13→11:20)
[2019-05-06 05:00] LABS: Hematocrit 33.7 % (35.3-44.9); Hemoglobin 10.6 g/dL (11.5-15.4); Mean Corpuscular HGB Conc 31.5 g/dL (31.6-35.5); Mean Corpuscular Hemoglobin 28.6 pg (28.0-33.3); Mean Corpuscular Volume 91.1 fL (83.0-100.0); Mean Platelet Volume 10.2 fL (9.4-12.4); Nucleated Red Blood Cells 0.1 /100 WBC (0); Platelet Count 201 K/mcL (140-400); Red Cell Distribution Width 13.3 % (11.5-14.5); White Blood Count 18.3 K/mcL (4.3-11.1)
[2019-05-06 05:16] LABS: BUN/Creatinine Ratio 22 (6-26); Blood Urea Nitrogen 19 mg/dL (8-23); Calcium 9.1 mg/dL (8.6-10.3); Carbon Dioxide 29 mEq/L (23-29); Chloride 104 mEq/L (98-107); Glucose 166 mg/dL (70-105); Magnesium 1.8 mg/dL (1.6-2.6); Osmolality,Calculated 300 (280-300); Phosphorous 3.3 mg/dL (2.7-4.5); Potassium 3.7 mEq/L (3.5-5.1); Sodium 142 mEq/L (136-145); eGFR For African Americans > 60 (> 60); eGFR For Non-African Americans > 60 (> 60)
[2019-05-06] MEDS: *HR* Heparin 5,000 UNIT/ML VIAL SQ SCH ×2 (05:45→13:02)
[2019-05-06] MEDS: MethylPREDNISolone 40 MG/ML VIAL IVP SCH (05:46)
[2019-05-06 05:47] LABS: Lymphocytes # 2.2 K/mcL (0.6-4.6); Monocytes # 0.7 K/mcL (0.0-1.3); Neutrophils # 14.6 K/mcL (1.6-8.9); Platelet Estimate Normal (Normal)
[2019-05-06 07:30] VITALS: BP 124/79
[2019-05-06] MEDS: Albuterol 2.5 MG/3 ML NEBULIZER IH SCH (07:30)
[2019-05-06] MEDS: Acetylcysteine 10% 2 ML INHSOL IH SCH (07:31)
--- NOTE | 2019-05-06 08:52 | Internal Med Progress Note ---
Hospitalist Progress Note - Encounter Date of Encounter: 05/06/19 Time of Encounter: 09:00 - Subjective Interval History: No acute events overnight - Exam Vitals: Temp Pulse Resp BP Pulse Ox 99.0 F 78 17 124/79 100 05/06/19 07:29 05/06/19 07:29 05/06/19 07:32 05/06/19 07:29 05/06/19 07:32 Exam: General: A&O X3, conversant, on BiPAP, pale-appearing Head: atraumatic, normocephalic Eye: PERRL, EOMI, conjuntiva pink, sclera anicteric Neck: Supple, trachea midline; No lymphadenopathy Respiratory: Diminished breath sounds bilaterally. No accessory muscle use, wh eezes, rales, or rhonchi Cardiovascular: RRR, +S1, +S2; no murmurs, rubs, gallops Abdomen: Soft, nontender Extremities: warm, radial pulses palpable and symmetrical; no clubbing, edema, or cyanosis Psychiatric: Normal affect, normal mood Skin: Dry, intact - Assessment and Plan (1) Acute respiratory failure with hypoxia and hypercapnia Current Visit: Yes Status: Acute Assessment and Plan: Pt came in with acute on chronic hypoxic and hypercapnioc resp failure 2/2 to pneumonia and COPD exacerbation Imprved on nebs, steroids and antibiotics. Wean oxygen down to baseline and wean steroids to po Patient did not qualify for BIPAP on overnight study Plan to discharge to rehab (2) Sepsis Current Visit: Yes Status: Acute Assessment and Plan: Likely secondary to pneumonia Continue zosyn and azithromycin (3) Acute exacerbation of chronic obstructive airways disease Current Visit: Yes Status: Acute Assessment and Plan: Continue nebs, steroids and antibiotics (4) Pneumonia Current Visit: Yes Status: Acute Assessment and Plan: Continue antibiotics (5) DVT prophylaxis Current Visit: Yes Status: Acute Assessment and Plan: Continue heparin - Time Spent with Patient Total time spent is greater than 50% in coordination of care (as documented) at patient's floor/unit and/or counseling patient: Internal Medicine: Result - Labs CBC & Chem 7: 05/06/19 04:23 05/06/19 04:23 Labs: Short CBC 05/05/19 05/06/19 Range/Units 08:13 04:23 WBC 14.6 H 18.3 H (4.3-11.1) K/mcL Hgb 11.1 L 10.6 L (11.5-15.4) g/dL Hct 35.5 33.7 L (35.3-44.9) % Plt Count 232 201 (140-400) K/mcL Neutrophils # 11.7 H 14.6 H (1.6-8.9) K/mcL BMP 05/05/19 05/06/19 08:13 04:23 Sodium 140 142 Potassium 3.4 L 3.7 Chloride 106 104 Carbon Dioxide 29 29 BUN 18 19 Creatinine 0.95 0.87 Glucose 143 H 166 H Calcium 9.3 9.1 - ABG Interpretation ABG results: ABG ABG pH 7.28 pH Units (7.32-7.45) L 05/02/19 10:45 ABG pCO2 52 mmHg (35-45) H 05/02/19 10:45 ABG pO2 73 mmHg (85-104) L 05/02/19 10:45 ABG O2 Saturation 92 % (95-98) L 05/02/19 10:45 Consult Discharge Plan - Plan Referrals: Cirilo Dacosta MD [Primary Care Provider] - (2) Sepsis Qualifiers: Sepsis type: sepsis due to unspecified organism Qualified Code(s): A41.9 - Sepsis, unspecified organism (4) Pneumonia Qualifiers: Pneumonia type: due to unspecified organism Laterality: unspecified laterality Lung location: unspecified part of lung Qualified Code(s): J18.9 - Pneumonia, unspecified organism
[2019-05-06] MEDS: Multivit/Ca/Min/Fe/FA 1 TAB TABLET PO SCH (09:47)
[2019-05-06] MEDS: Spironolactone 25 MG TABLET PO SCH (09:47)
[2019-05-06] MEDS: Azithromycin 250 MG TABLET PO SCH (09:47)
[2019-05-06] MEDS: ALPRAZolam 1 MG TABLET PO SCH (09:47)
[2019-05-06] MEDS: Cholecalciferol (D-3) 1,000 UNIT TABLET PO SCH (09:47)
[2019-05-06] MEDS: MOMETASONE FUROATE 100 mcg Inhaler IH SCH (11:38)
--- NOTE | 2019-05-06 14:22 | Discharge Summary ---
Date of Encounter: 05/06/19 Time of Encounter: 14:30 - Discharge Diagnosis (1) Acute respiratory failure with hypoxia and hypercapnia Priority: Primary Status: Acute Assessment and Plan: 79-year-old female with a PMH of CHF and COPD who presented to [facility] ED on 05/02/19 for respiratory distress and altered mental status. She was noted to be somewhat altered when she arrived. Per history obtained from family, patient reportedly was more confused and short of breath over the last few days. They report that today, she was coughing up blood-streaked sputum and developed increased confusion. Paramedics reported that patients O2 saturation was 64% on arrival, which subsequently improved with application of nonrebreather. Upon arrival, vital signs were significant for elevated temperature at 99.9, heart rate 120, respiratory rate 35, blood pressure 126/64, and O2 saturation 98% on 15 L via nonrebreather. Labs demonstrated elevated white count at 19.8, low hemoglobin at 9.6, elevated creatinine at 1.22, and elevated BNP at 201. CXR demonstrated no acute process. She was given a one-time dose of azithromycin, ceftriaxone, Levaquin, and Solu-Medrol. She was also given 2 L of normal saline. She was placed on BiPAP for respiratory support. She was assessed with acute on chronic hypoxic and hypercapnic resp failure 2/2 to pneumonia and COPD exacerbation and sepsis secondary to bacterial pneumonia. She imbrued on nebs, steroids and antibiotics. She is back at her baseline of 2L of oxygen and alert and oriented x 3. She will be discharged to rehab on a prednisone taper. 35 minutes was spent discharging this patient (2) Sepsis Priority: Primary Status: Acute Assessment and Plan: Likely secondary to pneumonia Continue zosyn and azithromycin Qualifiers: Sepsis type: sepsis due to unspecified organism Qualified Code(s): A41.9 - Sepsis, unspecified organism (3) Acute exacerbation of chronic obstructive airways disease Priority: Primary Status: Acute (4) Pneumonia Priority: Primary Status: Acute Qualifiers: Pneumonia type: due to unspecified organism Laterality: unspecified laterality Lung location: unspecified part of lung Qualified Code(s): J18.9 - Pneumonia, unspecified organism (5) DVT prophylaxis Priority: Primary Status: Acute Hospital course: Ms. Ponce is a 79 year old female - Time Spent with Patient Total time spent providing and/or coordinating discharge services: - Discharge Medications Prescriptions: New predniSONE [PredniSONE] 40 mg PO DAILY 7 Days #14 tablet Continued Metoprolol [Lopressor] 25 mg PO BID Duloxetine HCl [Cymbalta] 60 mg PO BID Spironolactone [Aldactone] 25 mg PO DAILY ALPRAZolam [Xanax 1 MG Tablet] 1 mg PO BID Nitroglycerin [Nitrostat] 0.4 mg SL Q5MIN PRN PRN Reason: Chest Pain Omeprazole [PriLOSEC] 20 mg PO DAILY Ibuprofen [Ibu] 800 mg PO TID PRN PRN Reason: Pain Atorvastatin Calcium 80 mg PO DAILY Albuterol Sulfate [Ventolin Hfa] 2 puff IH Q4H PRN PRN Reason: Shortness Of Breath Montelukast [Singulair] 10 mg PO DAILY Cholecalciferol (D-3) [Vitamin D] 2,000 unit PO DAILY Multivitamin [Daily Multiple Vitamin] 1 each PO DAILY Fluticasone Furoate [Arnuity Ellipta] 1 puff IH DAILY Tiotropium Br/Olodaterol HCl [Stiolto Respimat Inhal [place]] 2 puff IH DAILY Lactulose 30 ml PO BID PRN PRN Reason: Constipation Home Medications: ALPRAZolam [Xanax 1 MG Tablet] 1 mg PO BID 05/01/19 [History] Albuterol Sulfate [Ventolin Hfa] 2 puff IH Q4H PRN 05/01/19 [History] Atorvastatin Calcium 80 mg PO DAILY 05/01/19 [History] Cholecalciferol (D-3) [Vitamin D] 2,000 unit PO DAILY 05/01/19 [History] Duloxetine HCl [Cymbalta] 60 mg PO BID 05/01/19 [History] Fluticasone Furoate [Arnuity Ellipta] 1 puff IH DAILY 05/01/19 [History] Ibuprofen [Ibu] 800 mg PO TID PRN 05/01/19 [History] Lactulose 30 ml PO BID PRN 05/01/19 [History] Metoprolol [Lopressor] 25 mg PO BID 05/01/19 [History] Montelukast [Singulair] 10 mg PO DAILY 05/01/19 [History] Multivitamin [Daily Multiple Vitamin] 1 each PO DAILY 05/01/19 [History] Nitroglycerin [Nitrostat] 0.4 mg SL Q5MIN PRN 05/01/19 [History] Omeprazole [PriLOSEC] 20 mg PO DAILY 05/01/19 [History] Spironolactone [Aldactone] 25 mg PO DAILY 05/01/19 [History] Tiotropium Br/Olodaterol HCl [Stiolto Respimat Inhal [place]] 2 puff IH DAILY 05/01/19 [History] predniSONE [PredniSONE] 40 mg PO DAILY 7 Days #14 tablet 05/06/19 [Rx] Allergies/Adverse Reactions: Allergy/AdvReac Type Severity Reaction Status Date / Time acetaminophen [From Vicodin] AdvReac Vomiting Verified 05/01/19 22:21 Amoxicillin [From Augmentin] AdvReac Abdominal Verified 05/01/19 22:21 Pain ciprofloxacin AdvReac Vomiting Verified 05/01/19 22:21 clavulanic acid AdvReac Abdominal Verified 05/01/19 22:21 [From Augmentin] Pain hydrocodone [From Vicodin] AdvReac Vomiting Verified 05/01/19 22:21 Date of admission: 05/02/19 00:54 Primary care physician: Cirilo Dacosta MD Consults: 05/02/19 07:40 Consult to Critical Care [CONS] Routine Consulting Provider: [facility] Reason for Consult: septic shock secondary to PNA, on vaspressor support Call Completed: Yes 05/02/19 08:36 Consult to Nurse Navigator [CONS] Routine Comment: CHF 05/04/19 15:29 Consult to Occupational Therapy [CONS] Routine Comment: Evaluate, develop and implement POC Reason for Consult: Assess for possible rehab at discharge Does patient have active BEDREST order?: No Is patient medically & hemodynamically stable?: Yes Consult to Physical Therapy [CONS] Routine Comment: Evaluate, develop and implement POC Reason for Consult: Assess for possible rehab at discharge Does patient have active BEDREST order?: No Is patient medically & hemodynamically stable?: Yes - Constitutional Vitals: Temp Pulse Resp BP Pulse Ox 99.0 F 78 17 124/79 100 05/06/19 07:29 05/06/19 07:29 05/06/19 11:38 05/06/19 07:29 05/06/19 11:38 Exam: General: A&O X3, conversant, on BiPAP, pale-appearing Head: atraumatic, normocephalic Eye: PERRL, EOMI, conjuntiva pink, sclera anicteric Neck: Supple, trachea midline; No lymphadenopathy Respiratory: Diminished breath sounds bilaterally. No accessory muscle use, wheezes, rales, or rhonchi Cardiovascular: RRR, +S1, +S2; no murmurs, rubs, gallops Abdomen: Soft, nontender Extremities: warm, radial pulses palpable and symmetrical; no clubbing, edema, or cyanosis Psychiatric: Normal affect, normal mood Skin: Dry, intact - Patient Status Disposition: Transfer SNF Condition: Good - Discharge Instructions Follow Up With: Cirilo Dacosta MD [Primary Care Provider] -
[2019-05-06] MEDS: Ipratropium/Albuterol Neb 3 ML IH SCH ×2 (15:15→16:17)
== END 2019-05-06 18:51 | DRG 871 ==
LOC: 2ANU 21:32 → EMEROOARM 21:32 → OBSVTOIN 05-02 00:54 → SUATTDRO 05-02 00:54 → 2NNU 05-02 01:01 → ICNU 05-02 08:43 → 2NENU 05-03 23:09
PROVIDERS: ADMIT Internal Medicine; ATTEND Internal Medicine